=== PATIENT | male | born 1975 | race Caucasian/White ===

== ENCOUNTER 2018-01-02 07:44 | Day surgery (SDC) | payer OTHER, MEDICAID ==
[2018-01-01 08:45] VITALS: BMI 33.6
[~2018-01-02 07:44] MED LIST: LACTATED RINGERS 1,000 ML IV SCH
[2018-01-02 08:03] VITALS: TEMP 97.2
[2018-01-02] MEDS ORDERED: LIDOCAINE 1% 20 ML VIAL (10MG/ML) FOR IV START INTRADERMA ONE (08:06)
[2018-01-02] MEDS ORDERED: LIDOCAINE 1% INJ 10MG/ML (20 ML MDV) ONE (09:34)
[2018-01-02] MEDS ORDERED: PROPOFOL 10 MG/ML 20 ML VIAL IV ONE (09:34)
[2018-01-02 10:24] VITALS: BP 115/70; PULSE 70; RESP 16
--- NOTE | 2018-01-02 13:33 | P.PCN ---
Date of Procedure: 01/02/18 Procedure(s) Performed: Procedure: Colonoscopy and biopsy. Preoperative diagnosis: History of Crohn's disease. Postoperative diagnosis: 1. Ileitis involving the area of anastomosis without any involvement of the large intestine. 2. No strictures. 3. Biopsies obtained in the ileum. Preparation: HalfLytely prep. Sedation: Was provided by anesthesia. Brief clinical history: The patient is a 42-year-old male with history of Crohn' s disease. The patient had two resections in the past and has required immunosuppressive and biologic therapy. He had a flare in 2015 and was on prednisone for 4 months after that. Apparently he stopped all his medications this last August because of some issues with side effects. He did not tolerate and entyvio because it was giving him severe cramps during the infusions. And he was on Imuran and Humira which he stopped in August of this year. The patient has 4-6 soft bowel movements daily. Occasional abdominal pains. No weight loss. His maternal grandfather had colon cancer and his last colonoscopy was in 2013. This evaluation is to assess for activity and complications of his Crohn's to guide therapy and to rule out neoplasia. Procedure: With the patient on his left lateral decubitus position and after informed consent and adequate sedation, the perianal area was inspected and it did not show any fissures or fistulas. There were no masses felt on digital rectal examination. The Olympus CFQ 160L video colonoscope was then inserted in the rectum in the usual fashion and advanced to the right colon. The colon appeared healthy. The area of anastomosis with the small bowel was noted and it appeared inflamed with edema, erythema and ulcerations. There was no strictures or stenosis at the area of the anastomosis and the inflammation just described pertains to findings on the small bowel side of the anastomosis. I could not advance the endoscope into the small bowel, but I was able to obtain a biopsy from the small bowel side of the anastomosis. No other abnormalities were noted in the large intestine then the endoscope was retroflexed in the rectum before it was withdrawn. The patient tolerated the procedure well. Plan: The patient was reassured and I discussed with him and his . He will follow up in the office in few weeks and I anticipate starting him back on a biologic that he can tolerate.
== END 2018-01-02 10:51 | disposition home or self-care (01) ==
LOC: ORWHC2ENDO 07:44
DX: K52.9 Noninfective gastroenteritis and colitis, unspecified (principal); K63.3 Ulcer of intestine; Z80.0 Family history of malignant neoplasm of digestive organs; Z98.0 Intestinal bypass and anastomosis status; Z90.49 Acquired absence of other specified parts of digestive tract
CPT/HCPCS: 88305; 45380; J2001; J2704

== ENCOUNTER → 2018-01-29 | Outpatient (CLI) | payer OTHER, MEDICAID ==
[2018-01-29 14:02] LABS: MCH 30.9 pg (25.0-35.0); Platelet Count 337 k/uL (150-450); RDW 13.4 % (11.5-15.5)
[2018-01-29 14:10] LABS: MCHC 32.7 g/dL (31.0-37.0); MCV 94.5 fL (80.0-100.0); Mean Platelet Volume 6.6; RBC 5.93 m/uL (4.30-5.90); WBC 23.6 k/uL (3.8-10.6)
[2018-01-29 14:14] LABS: HGB 18.3 gm/dL (13.0-17.5)
[2018-01-29 14:17] LABS: ALT 116 U/L (21-72); AST 40 U/L (17-59); Albumin 4.4 g/dL (3.5-5.0); Alkaline Phosphatase 106 U/L (38-126); Anion Gap 13 mmol/L; Blood Urea Nitrogen 23 mg/dL (9-20); C Reactive Protein <5.0 mg/L (<10.0); Calcium 9.8 mg/dL (8.4-10.2); Carbon Dioxide 23 mmol/L (22-30); Chloride 108 mmol/L (98-107); Glucose 130 mg/dL (74-99); Potassium 4.1 mmol/L (3.5-5.1); Sodium 144 mmol/L (137-145); Total Bilirubin 0.5 mg/dL (0.2-1.3); Total Protein 8.1 g/dL (6.3-8.2)
[2018-01-29 15:04] LABS: Erythrocyte Sedimentation Rate 7 mm/hr (0-15)
== END ==
LOC: RADXRMAIN 13:23
DX: K50.80 Crohn's disease of both small and large intestine without complications (principal)
CPT/HCPCS: 80053; 85027; 85652; 86140

== ENCOUNTER → 2018-02-10 | Outpatient (CLI) | payer OTHER, MEDICAID | END | disposition home or self-care (01) | LOC: RADXRWHC 13:52 | DX: K50.80 Crohn's disease of both small and large intestine without complications (principal) | CPT/HCPCS: 36415; 86480 ==

== ENCOUNTER → 2018-07-26 | Outpatient (CLI) | payer OTHER, MEDICAID ==
[2018-07-26 11:35] LABS: HCT 46.3 % (39.0-53.0); HGB 15.3 gm/dL (13.0-17.5); MCH 29.9 pg (25.0-35.0); MCV 90.4 fL (80.0-100.0); Mean Platelet Volume 6.5; Platelet Count 338 k/uL (150-450); RBC 5.12 m/uL (4.30-5.90); RDW 13.8 % (11.5-15.5); WBC 10.9 k/uL (3.8-10.6)
[2018-07-26 13:29] LABS: Erythrocyte Sedimentation Rate 26 mm/hr (0-15)
[2018-07-26 16:30] LABS: Albumin 4.3 g/dL (3.80-4.90); Albumin/Globulin Ratio 1.26 (1.60-3.17); Anion Gap 7.7 mmol/L (4.00-12.00); C Reactive Protein 1.3 mg/dL (0.0-0.8); Calcium 9.2 mg/dL (8.7-10.3); Carbon Dioxide 29.3 mmol/L (21.6-31.8); Globulin 3.4 g/dL (1.6-3.3); Potassium 4.4 mmol/L (3.5-5.5); Total Bilirubin 0.5 mg/dL (0.3-1.2); Total Protein 7.7 g/dL (6.2-8.2)
== END ==
LOC: LABWHC1 09:50
DX: K50.80 Crohn's disease of both small and large intestine without complications (principal)
CPT/HCPCS: 80053; 85027; 85652; 86140

== ENCOUNTER → 2018-08-01 | Outpatient (CLI) | payer OTHER, MEDICAID | LOC: LABWHC1 15:11 | DX: K50.80 Crohn's disease of both small and large intestine without complications (principal) | CPT/HCPCS: 36415; 82397 ==

== ENCOUNTER 2018-09-22 18:28 | Emergency (ER) | payer OTHER, MEDICAID ==
[2018-09-22] MEDS ORDERED: guaiFENesin-DM 600/30MG 1 EACH TAB.ER.12H PO STA (19:01)
[2018-09-22] MEDS ORDERED: predniSONE 50 MG TAB PO STA (19:01)
[2018-09-22] MEDS ORDERED: IPRATROPIUM-ALBUTEROL 3 ML NEB INHALATION STA (19:01)
--- NOTE | 2018-09-22 19:12 | ED ---
URI HPI - General Chief Complaint: Upper Respiratory Infection Stated Complaint: pain in chest when coughing Time Seen by Provider: 09/22/18 18:43 Source: patient Mode of arrival: ambulatory Limitations: no limitations - History of Present Illness Initial Comments: 43-year-old male patient presents to the emergency department today for evaluation of cough. Patient states he has had a cough intermittently over the last couple of weeks after he cut open a fibrous mattress and old camper. Patient states that last night the coughing seemed to worsen. States he is not having burning chest pain with coughing. Denies radiation of the pain through to his back. Denies any pain with deep breathing. Patient states he is coughing up small amount of clear sputum. Denies any hemoptysis. States he does have a mild sore throat but denies any nasal congestion or drainage. Denies any fever or chills with this. Patient denies any history of lung condi tions or history of smoking. Denies taking medication for his symptoms. Patient denies any recent rash, abdominal pain, nausea, vomiting, diarrhea, constipation, back pain, numbness, tingling, dizziness, weakness, hematuria, dysuria, urinary urgency, urinary frequency, headache, visual changes, or any other complaints. - Related Data Home Medications Medication Instructions Recorded Confirmed Adalimumab [Humira(Cf) Pen] 40 mg SQ [id number] 09/22/18 09/22/18 Previous Rx's Medication Instructions Recorded Albuterol Sulfate [Proair Hfa] 1 - 2 puff INHALATION Q6HR PRN #1 09/22/18 inhaler guaiFENesin-DM 600/30MG [Mucinex 1 each PO Q12HR #10 tab.er.12h 09/22/18 Dm] predniSONE 50 mg PO DAILY #5 tablet 09/22/18 Allergies Allergy/AdvReac Type Severity Reaction Status Date / Time No Known Allergies Allergy Verified 09/22/18 19:27 Review of Systems ROS Statement: Those systems with pertinent positive or pertinent negative responses have been documented in the HPI. ROS Other: All systems not noted in ROS Statement are negative. Past Medical History Additional Past Medical History / Comment(s): Crohn's disease, past bronchitis, "occ leg swelling" History of Any Multi-Drug Resistant Organisms: None Reported Past Surgical History: Bowel Resection, Orthopedic Surgery Additional Past Surgical History / Comment(s): Colonoscopy, rt Ankle tendon/ligament repair and lt Index finger surgery d/t crushing injury from hydrolic press Past Anesthesia/Blood Transfusion Reactions: No Reported Reaction Past Psychological History: No Psychological Hx Reported Smoking Status: Former smoker Past Alcohol Use History: None Reported Past Drug Use History: None Reported - Past Family History Mother Family Medical History: Cancer Additional Family Medical History / Comment(s): Lung CA Father Family Medical History: Chest Pain / Angina, Deep Vein Thrombosis (DVT) Additional Family Medical History / Comment(s): heart disease,poor circulation General Exam Limitations: no limitations General appearance: alert, in no apparent distress, other (Physical well- developed, well-nourished adult male patient in no acute distress. Vital signs upon presentation are temperature 98.6F, pulse 96, respirations 18, blood pressure 142/93, pulse ox 97% on room air.) Eye exam: Present: normal appearance, PERRL, EOMI. Absent: scleral icterus, conjunctival injection, periorbital swelling ENT exam: Present: normal exam, normal oropharynx, mucous membranes moist Neck exam: Present: normal inspection. Absent: tenderness, meningismus, lymphadenopathy Respiratory exam: Present: normal lung sounds bilaterally. Absent: respiratory distress, wheezes, rales, rhonchi, stridor Cardiovascular Exam: Present: regular rate, normal rhythm, normal heart sounds. Absent: systolic murmur, diastolic murmur, rubs, gallop, clicks GI/Abdominal exam: Present: soft, normal bowel sounds. Absent: distended, tenderness, guarding, rebound, rigid Neurological exam: Present: alert, oriented X3, CN II-XII intact Psychiatric exam: Present: normal affect, normal mood Skin exam: Present: warm, dry, intact, normal color. Absent: rash Course Vital Signs 09/22/18 09/22/18 09/22/18 18:33 19:44 19:50 Temperature 98.6 F Pulse Rate 96 95 95 Respiratory 18 Rate Blood Pressure 142/93 O2 Sat by Pulse 97 Oximetry 09/22/18 20:15 Temperature 98.2 F Pulse Rate 103 H Respiratory 22 Rate Blood Pressure 151/97 O2 Sat by Pulse 97 Oximetry Medical Decision Making - Medical Decision Making 43-year-old male patient presented to the emergency department today for evaluation of cough and chest discomfort. Physical examination reveals clear equal lung sounds. Chest x-ray showed no acute cardio pulmonary process. Patient is afebrile, vital signs stable. EKG showed normal sinus rhythm. Patient denies any chest pain at rest. Patient symptoms are consistent with acute bronchitis. We'll treat with steroids, Mucinex, and Pro Air inhaler. He is instructed to follow-up with his primary care physician for recheck in 1-2 days. Return parameters were discussed in detail. He verbalizes understanding and agrees this plan. - EKG Data -: EKG Interpreted by Me EKG Comments: EKG obtained in 1922 shows normal sinus rhythm with a ventricular rate of 90, DC interval 152, QRS duration 86, QT 350, QTC 428. No evidence of ST elevation or depression. - Radiology Data Radiology results: report reviewed, image reviewed Two-view x-ray of the chest is obtained. Report was reviewed in its entirety. Impression by Dr. Nicholson shows normal chest. Disposition Clinical Impression: Acute bronchitis Disposition: HOME SELF-CARE Condition: Good Instructions (If sedation given, give patient instructions): Acute Bronchitis (ED) Additional Instructions: Complete medications as directed. Follow-up through primary care physician for recheck in 1-2 days. Return to the emergency department immediately for any new, worsening, or concerning symptoms. Prescriptions: guaiFENesin-DM 600/30MG [Mucinex Dm] 1 each PO Q12HR #10 tab.er.12h predniSONE 50 mg PO DAILY #5 tablet Albuterol Sulfate [Proair Hfa] 1 - 2 puff INHALATION Q6HR PRN #1 inhaler PRN Reason: Shortness Of Breath Is patient prescribed a controlled substance at d/c from ED?: No Referrals: None,Stated [Primary Care Provider] - 1-2 days Time of Disposition: 20:02
--- NOTE | 2018-09-22 19:23 | XR ---
EXAMINATION TYPE: XR chest 2V DATE OF EXAM: 09/22/2018 COMPARISON: NONE HISTORY: Cough TECHNIQUE: Frontal and lateral views of the chest are obtained. FINDINGS: Heart and mediastinum are normal. Lungs are clear. Diaphragm is normal. Bony thorax appear s normal. IMPRESSION: Normal chest
[2018-09-22 20:28] VITALS: BP 151/97; PULSE 103; RESP 22; TEMP 98.2
== END 2018-09-22 20:15 | disposition home or self-care (01) ==
LOC: EC 18:28
DX: J20.9 Acute bronchitis, unspecified (principal); Z87.891 Personal history of nicotine dependence; Z79.899 Other long term (current) drug therapy
CPT/HCPCS: 94640; 93005; 71046; 99283; J7512

== ENCOUNTER → 2019-05-05 | Outpatient (CLI) | payer OTHER ==
[2019-05-05 10:17] LABS: Basophils # (A) 0.1 k/uL (0-0.2); Basophils % (A) 0 %; Eosinophils % (A) 0 %; HCT 45.5 % (39.0-53.0); HGB 14.5 gm/dL (13.0-17.5); Lymphocytes # (A) 2.1 k/uL (1.0-4.8); Lymphocytes % (A) 10 %; MCH 28.4 pg (25.0-35.0); MCHC 31.8 g/dL (31.0-37.0); MCV 89.5 fL (80.0-100.0); Mean Platelet Volume 7.1; Monocytes # (A) 1.4 k/uL (0-1.0); Monocytes % (A) 6 %; Neutrophils # (A) 17.9 k/uL (1.3-7.7); Neutrophils % (A) 83 %; Platelet Count 314 k/uL (150-450); RBC 5.09 m/uL (4.30-5.90); RDW 14.3 % (11.5-15.5); WBC 21.8 k/uL (3.8-10.6)
[2019-05-05 11:43] LABS: Erythrocyte Sedimentation Rate 14 mm/hr (0-15)
[2019-05-05 17:09] LABS: African American GFR (CKD) 60.7 (60.0-200.0); Albumin 4.1 g/dL (3.80-4.90); Albumin/Globulin Ratio 1.64 (1.60-3.17); C Reactive Protein 0.5 mg/dL (0.0-0.8); Calcium 9.3 mg/dL (8.7-10.3); Globulin 2.5 g/dL (1.6-3.3); Non-African American GFR(CKD) 52.4 (60.0-200.0); Potassium 3.8 mmol/L (3.5-5.5); Total Bilirubin 0.3 mg/dL (0.3-1.2); Total Protein 6.6 g/dL (6.2-8.2)
== END ==
LOC: LABWHC1 09:35
PROVIDERS: ATTEND Internal Medicine
DX: K50.90 Crohn's disease, unspecified, without complications (principal)
CPT/HCPCS: 36415; 80053; 85025; 85652; 86140

== ENCOUNTER → 2019-06-17 | Outpatient (CLI) | payer OTHER | LOC: LABWHC1 06:57 | PROVIDERS: ATTEND Internal Medicine | DX: K50.813 Crohn's disease of both small and large intestine with fistula (principal) | CPT/HCPCS: 36415; 80299; 83520 ==

== ENCOUNTER 2019-08-04 16:22 | Inpatient (IN) | payer OTHER ==
[2019-08-04] MEDS ORDERED: SODIUM CHLORIDE 0.9% 1,000 ML IV STA (16:42)
[2019-08-04] MEDS ORDERED: ONDANSETRON 4 MG/2 ML VIAL IVP STA (16:42)
[2019-08-04] MEDS ORDERED: MORPHINE SULFATE 4 MG/ML SYRINGE IV STA (16:42)
[2019-08-04] MEDS ORDERED: methylPREDNISolone SOD SUCCI 125 MG/2 ML VIAL IV STA (16:44)
[2019-08-04 17:12] LABS: Basophils # (A) 0.1 k/uL (0-0.2); Basophils % (A) 1 %; Eosinophils # (A) 0.2 k/uL (0-0.7); Eosinophils % (A) 1 %; HCT 49.2 % (39.0-53.0); HGB 16.2 gm/dL (13.0-17.5); Lymphocytes # (A) 2.4 k/uL (1.0-4.8); Lymphocytes % (A) 15 %; MCHC 32.9 g/dL (31.0-37.0); MCV 88.1 fL (80.0-100.0); Mean Platelet Volume 6.6; Monocytes % (A) 7 %; Neutrophils # (A) 11.8 k/uL (1.3-7.7); Neutrophils % (A) 74 %; Platelet Count 371 k/uL (150-450); RBC 5.58 m/uL (4.30-5.90); RDW 13.9 % (11.5-15.5); WBC 15.9 k/uL (3.8-10.6)
[2019-08-04 17:13] LABS: Appearance,Urine Clear (Clear); Bilirubin,Urine Negative (Negative); Blood,Urine Negative (Negative); Color,Urine Yellow; Glucose,Urine (UA) Negative (Negative); Ketones,Urine Negative (Negative); Leukocyte Esterase,Urine Negative (Negative); Nitrite,Urine Negative (Negative); PH, Urine 5.5 (5.0-8.0); Protein,Urine Negative (Negative); Specific Gravity,Urine 1.018 (1.001-1.035); Urobilinogen,Urine <2.0 mg/dL (<2.0)
--- NOTE | 2019-08-04 17:20 | ED ---
Abdominal Pain HPI - General Chief Complaint: Abdominal Pain Stated Complaint: Crohn's flare up Time Seen by Provider: 08/04/19 16:27 Source: patient Mode of arrival: ambulatory Limitations: no limitations - History of Present Illness Initial Comments: Patient is a 44-year-old male, with history of Crohn's disease, presenting to the emergency department complaints of right lower quadrant pain 3 days. He feels like this is a Crohn's flareup. Patient admits to intermittent fevers, chills, diarrhea as well as the belly pain. He states he had a colonoscopy performed 2-3 weeks ago which showed increased in strictures. He states the pain is suprapubic as well as right lower quadrant. He states he does have mild pain in the left side. He denies vomiting. Does admit to mild nausea. Denies melana, hematochezia, or hematemesis. Patient gets an 8 week injection of immunomodulator. He states his next treatment is in one to 2 weeks. At that p oint they are going to switch him to every 4 weeks[address] He follows with Dr. Caro. He denies shortness of breath, chest pain, cough. He has no other complaints at this time. Upon arrival to the ER, his vital signs are stable. - Related Data Previous Rx's Medication Instructions Recorded Bisacodyl [Dulcolax] 10 mg PO DAILY PRN #10 tablet. 06/04/19 predniSONE 10 mg PO DIRECTED #50 tab 06/04/19 Allergies Allergy/AdvReac Type Severity Reaction Status Date / Time No Known Allergies Allergy Verified 08/04/19 16:25 Review of Systems ROS Statement: Those systems with pertinent positive or pertinent negative responses have been documented in the HPI. ROS Other: All systems not noted in ROS Statement are negative. Past Medical History Additional Past Medical History / Comment(s): Crohn's disease with injections every 8 weeks, past bronchitis, "occ leg swelling" History of Any Multi-Drug Resistant Organisms: None Reported Past Surgical History: Appendectomy, Bowel Resection, Orthopedic Surgery Additional Past Surgical History / Comment(s): Colonoscopy, bowel resection x 2, rt ankle tendon/ligament repair and lt index finger surgery d/t crushing injury from hydrolic press Past Anesthesia/Blood Transfusion Reactions: No Reported Reaction Past Psychological History: No Psychological Hx Reported Smoking Status: Former smoker Past Alcohol Use History: None Reported Past Drug Use History: None Reported - Past Family History Mother Family Medical History: Cancer Additional Family Medical History / Comment(s): Lung CA Father Family Medical History: Chest Pain / Angina, Deep Vein Thrombosis (DVT) Additional Family Medical History / Comment(s): heart disease,poor circulation General Exam - General Exam Comments Initial Comments: GENERAL: Well-appearing, well-nourished and in no acute distress. HEAD: Atraumatic, normocephalic. EYES: Pupils equal round and reactive to light, extraocular movements intact, sclera anicteric, conjunctiva are normal. ENT: TMs normal, nares patent, oropharynx clear without exudates. Moist mucous membranes. NECK: Normal range of motion, supple without lymphadenopathy or JVD. LUNGS: Breath sounds clear to auscultation bilaterally and equal. No wheezes rales or rhonchi. HEART: Regular rate and rhythm without murmurs, rubs or gallops. ABDOMEN: Very tender to palpation of the right lower quadrant, suprapubic area. Mild tenderness in the left lower quadrant. Hyperactive bowel sounds. Positive gu arding. Soft. No masses appreciated. : Deferred EXTREMITIES: Normal range of motion, no pitting or edema. No clubbing or cyanosis. NEUROLOGICAL: Normal speech, normal gait. PSYCH: Normal mood, normal affect. SKIN: Warm, Dry, normal turgor, no rashes or lesions noted. Limitations: no limitations Course Vital Signs 08/04/19 08/04/19 16:23 17:01 Temperature 99.0 F Pulse Rate 108 H 100 Respiratory 18 18 Rate Blood Pressure 128/88 134/87 O2 Sat by Pulse 99 99 Oximetry Medical Decision Making - Medical Decision Making Patient is a 44-year-old male with history of Crohn's presenting with a possible Crohn's flareup for 3 days. Intermittent fevers, right lower quadrant abdominal pain, diarrhea, nausea. No vomiting. Vitals are stable upon arrival. On exam, patient is really tender in right lower quadrant. Patient's lab reveal looks cytosis 15.9, creatinine was little elevated at 1.65. No other acute abnormalities. CT the abdomen shows a partial mechanical obstruction as well as fat stranding edema along the distal loop of ileum. Patient was given steroids, nausea and pain meds. Patient reports mild improvement of symptoms. Patient will be admitted and Dr. Caro be consulted. Patient will be continu ed on pain control as well as steroids. He is in agreement with this plan of care. Case discussed with Dr. Beach. - Lab Data Result diagrams: 08/04/19 16:50 08/04/19 16:50 Lab Results 08/04/19 08/04/19 08/04/19 Range/Units 16:00 16:50 16:50 WBC 15.9 H (3.8-10.6) k/uL RBC 5.58 (4.30-5.90) m/uL Hgb 16.2 (13.0-17.5) gm/dL Hct 49.2 (39.0-53.0) % MCV 88.1 (80.0-100.0) fL MCH 29.0 (25.0-35.0) pg MCHC 32.9 (31.0-37.0) g/dL RDW 13.9 (11.5-15.5) % Plt Count 371 (150-450) k/uL Neutrophils % 74 % Lymphocytes % 15 % Monocytes % 7 % Eosinophils % 1 % Basophils % 1 % Neutrophils # 11.8 H (1.3-7.7) k/uL Lymphocytes # 2.4 (1.0-4.8) k/uL Monocytes # 1.0 (0-1.0) k/uL Eosinophils # 0.2 (0-0.7) k/uL Basophils # 0.1 (0-0.2) k/uL PT (9.0-12.0) sec INR (<1.2) APTT (22.0-30.0) sec Sodium 138 (137-145) mmol/L Potassium 3.9 (3.5-5.1) mmol/L Chloride 103 (98-107) mmol/L Carbon Dioxide 25 (22-30) mmol/L Anion Gap 10 mmol/L BUN 15 (9-20) mg/dL Creatinine 1.65 H (0.66-1.25) mg/dL Est GFR (CKD-EPI)AfAm 58 (>60 ml/min/1.73 sqM) Est GFR (CKD-EPI)NonAf 51 (>60 ml/min/1.73 sqM) Glucose 82 (74-99) mg/dL Plasma Lactic Acid Narinder (0.7-2.0) mmol/L Calcium 9.4 (8.4-10.2) mg/dL Total Bilirubin 1.1 (0.2-1.3) mg/dL AST 29 (17-59) U/L ALT 26 (4-49) U/L Alkaline Phosphatase 127 H (38-126) U/L Total Protein 8.1 (6.3-8.2) g/dL Albumin 4.7 (3.5-5.0) g/dL Amylase 65 (30-110) U/L Lipase 118 (23-300) U/L Urine Color Yellow Urine Appearance Clear (Clear) Urine pH 5.5 (5.0-8.0) Ur Specific [place] 1.018 (1.001-1.035) Urine Protein Negative (Negative) Urine Glucose (UA) Negative (Negative) Urine Ketones Negative (Negative) Urine Blood Negative (Negative) Urine Nitrite Negative (Negative) Urine Bilirubin Negative (Negative) Urine Urobilinogen <2.0 (<2.0) mg/dL Ur Leukocyte Esterase Negative (Negative) 08/04/19 08/04/19 Range/Units 16:50 16:50 WBC (3.8-10.6) k/uL RBC (4.30-5.90) m/uL Hgb (13.0-17.5) gm/dL Hct (39.0-53.0) % MCV (80.0-100.0) fL MCH (25.0-35.0) pg MCHC (31.0-37.0) g/dL RDW (11.5-15.5) % Plt Count (150-450) k/uL Neutrophils % % Lymphocytes % % Monocytes % % Eosinophils % % Basophils % % Neutrophils # (1.3-7.7) k/uL Lymphocytes # (1.0-4.8) k/uL Monocytes # (0-1.0) k/uL Eosinophils # (0-0.7) k/uL Basophils # (0-0.2) k/uL PT 10.0 (9.0-12.0) sec INR 1.0 (<1.2) APTT 23.0 (22.0-30.0) sec Sodium (137-145) mmol/L Potassium (3.5-5.1) mmol/L Chloride (98-107) mmol/L Carbon Dioxide (22-30) mmol/L Anion Gap mmol/L BUN (9-20) mg/dL Creatinine (0.66-1.25) mg/dL Est GFR (CKD-EPI)AfAm (>60 ml/min/1.73 sqM) Est GFR (CKD-EPI)NonAf (>60 ml/min/1.73 sqM) Glucose (74-99) mg/dL Plasma Lactic Acid Narinder 1.7 (0.7-2.0) mmol/L Calcium (8.4-10.2) mg/dL Total Bilirubin (0.2-1.3) mg/dL AST (17-59) U/L ALT (4-49) U/L Alkaline Phosphatase (38-126) U/L Total Protein (6.3-8.2) g/dL Albumin (3.5-5.0) g/dL Amylase (30-110) U/L Lipase (23-300) U/L Urine Color Urine Appearance (Clear) Urine pH (5.0-8.0) Ur Specific [place] (1.001-1.035) Urine Protein (Negative) Urine Glucose (UA) (Negative) Urine Ketones (Negative) Urine Blood (Negative) Urine Nitrite (Negative) Urine Bilirubin (Negative) Urine Urobilinogen (<2.0) mg/dL Ur Leukocyte Esterase (Negative) Disposition Clinical Impression: Crohn's ileitis, Leukocytosis, Intractable abdominal pain, Mechanical obstruction of the intestine Disposition: [facility] Condition: Stable Is patient prescribed a controlled substance at d/c from ED?: No Referrals: None,Stated [Primary Care Provider] - 1-2 days Decision Date: 08/04/19 Decision Time: 18:13
[2019-08-04 17:25] LABS: Albumin 4.7 g/dL (3.5-5.0); Calcium 9.4 mg/dL (8.4-10.2); Potassium 3.9 mmol/L (3.5-5.1); Total Bilirubin 1.1 mg/dL (0.2-1.3); Total Protein 8.1 g/dL (6.3-8.2)
[2019-08-04] MEDS ORDERED: MORPHINE SULFATE 4 MG/ML SYRINGE IVP STA (17:44)
--- NOTE | 2019-08-04 17:56 | CT ---
EXAMINATION TYPE: CT abdomen pelvis w con DATE OF EXAM: 08/04/2019 COMPARISON: 06/02/2019 HISTORY: Abdominal pain and diarrhea, hx of crohns CT DLP: 1079.1 mGycm Automated exposure control for dose reduction was used. CONTRAST: Performed with IV Contrast, patient injected with 100 mL of Isovue 300. Lung bases are clear. There is no pleural effusion. Heart size is normal. There is no pericardial eff usion. Liver spleen pancreas stomach gallbladder appear normal. Bile ducts are not dilated. Gallbladder gutierrez ures 4.2 cm in maximum diameter. There is no adrenal mass. Kidneys show satisfactory contrast opacification. There is no hydronephrosi s. There are multiple surgical clips anterior to the right kidney. Ureters are not dilated. Bladder d istends smoothly. There is no inguinal hernia. There is no free fluid in the pelvis. There is a loop of distal ileum with significant wall thickening and surrounding fat stranding and edema. There is pr evious surgery on the distal small bowel. Ileum is dilated up to 4.3 cm. There is wall thickening and luminal narrowing apparently involving the terminal ileum near the ileocolic anastomosis. The ileum is dilated proximally. There is no free air. There is no ascites. There is mild wall thickening of the more proximal distal ileum. Lumbar vertebra have normal spacing and alignment. Posterior elements are intact. Bony pelvis is inta ct. IMPRESSION: Inflammatory changes and wall thickening of the distal ileum with localized dilated loop of ileum pro ximal to the narrowing. There is probably a partial mechanical obstruction. There is fat stranding an d edema around the area of involvement that is increased compared to old exam. Distal small bowel ove rall is less distended than last exam.
[2019-08-04] MEDS ORDERED: NALOXONE 0.4 MG/ML 1 ML VIAL IV PRN (18:07)
[2019-08-04] MEDS ORDERED: ONDANSETRON 4 MG/2 ML VIAL IVP PRN (18:07)
[2019-08-04] MEDS: SODIUM CHLORIDE 0.9% 1,000 ML IV SCH (19:22)
[2019-08-04] MEDS: MORPHINE SULFATE 4 MG/ML SYRINGE IV PRN ×2 (19:22→22:39)
[2019-08-04] MEDS: KETOROLAC 30 MG/ML 1 ML VIAL IVP PRN (20:53)
--- NOTE | 2019-08-04 22:00 | P.HPIM ---
History of Present Illness H&P Date: 08/04/19 The patient is a 44 yo M with a PMH of crohn's disease (diagnosed 2003), s/p bowel resection, complicated by perianal fistulas and multiple relapses, currently on biologic medications presented to the ED with complaints of gradually worsening abdominal pain, with diarrhea and nausea. The patient notes that his symptoms started 3-4 days ago when he developed a mild right lower quadrant abdominal pain. He notes that the pain gradually worsened, and he then developed watery diarrhea along with subjective fevers and nausea. He denied vomiting. He also denied recent travel, sick contacts, cough, chest pain, shortness of breath, or dizziness. He reports that this is similar to his previous episodes of Crohn's flare-ups. The patient underwent an extensive evaluation in the emergency room with an abdomen/pelvis computed tomography scan with contrast revealing distal ileum inflammatory changes with wall thickening and some dilated loops proximal to the narrowing and possible partial mechanical obstruction. Laboratory evaluation revealed a WBC count of 15.9, hemoglobin 16.2, alkaline phosphatase 127, sodium 138, potassium 3.9, BUN 15, creatinine 1.65. The patient was given IV Solu-Medrol along with pain medications and IV fluids and is being admitted to the medicine service for further management of Crohn's flareup with GI on consult. Review of Systems Pertinent positives and negatives as discussed in HPI, a complete review of systems was performed and all other systems are negative. Past Medical History Additional Past Medical History / Comment(s): Crohn's disease with injections every 8 weeks, past bronchitis, "occ leg swelling" History of Any Multi-Drug Resistant Organisms: None Reported Past Surgical History: Appendectomy, Bowel Resection, Orthopedic Surgery Additional Past Surgical History / Comment(s): Colonoscopy, bowel resection x 2, rt ankle tendon/ligament repair and lt index finger surgery d/t crushing injury from hydrolic press Past Anesthesia/Blood Transfusion Reactions: No Reported Reaction Past Psychological History: No Psychological Hx Reported Additional Psychological History / Comment(s): Pt resides with his spouse and 3 children. He has another rebecca that lives with his exspouse. He is independent. Smoking Status: Former smoker Past Alcohol Use History: None Reported Additional Past Alcohol Use History / Comment(s): started smoking age 18 smoked 1/2-1 and quit 2011 Past Drug Use History: None Reported - Past Family History Mother Family Medical History: Cancer Additional Family Medical History / Comment(s): Lung CA Father Family Medical History: Chest Pain / Angina, Deep Vein Thrombosis (DVT) Additional Family Medical History / Comment(s): heart disease,poor circulation Medications and Allergies Home Medications Medication Instructions Recorded Confirmed Type Ciprofloxacin HCl [Cipro] 500 mg PO Q12H 08/04/19 08/04/19 History Flaxseed Oil 1,000 mg PO BID 08/04/19 08/04/19 History [place]-3 Fatty Acids/Fish Oil [Fish 1 cap PO DAILY 08/04/19 08/04/19 History Oil 1,000 mg Softgel] Ustekinumab [Stelara] See Taper SQ DIRECTED 08/04/19 08/04/19 History Allergies Allergy/AdvReac Type Severity Reaction Status Date / Time No Known Allergies Allergy Verified 08/04/19 18:50 Physical Exam Vitals: Vital Signs Temp Pulse Pulse Resp BP BP Pulse Ox 08/04/19 20:38 98.6 F 74 14 145/74 94 L 08/04/19 20:00 76 20 125/76 98 08/04/19 19:00 74 20 122/73 98 08/04/19 17:01 100 18 134/87 99 08/04/19 16:23 99.0 F 108 H 18 128/88 99 Intake and Output 08/04/19 08/04/19 08/04/19 06:59 14:59 22:59 Other: Weight 97.522 kg General: non toxic, no distress, appears at stated age, overweight Derm: no unusual rashes/lesions no unusual ecchymoses, warm, dry Head: atraumatic, normocephalic, symmetric Eyes: EOMI, no lid lag, anicteric sclera, pupils equal round reactive to light ENT: Nose and ears atraumatic, no thrush, no pharyngeal erythema Neck: No thyromegaly, no cervical lymphadenopathy, trachea midline, supple Mouth: no lip lesion, mucus membranes moist Cardiovascular: S1S2 reg, no murmur, positive posterior tibial pulse bilateral, no edema, capillary refill less than 2 seconds Lungs: CTA bilateral, no rhonchi, no rales , no accessory muscle use Abdominal: soft, right lower quadrant tenderness to palpation, minimal guarding, no appreciable organomegaly, normal bowel sounds Ext: no gross muscle atrophy, muscle strength 5 out of 5 in all 4 extremities grossly, no contractures, Neuro: CN II-XI grossly intact, light touch intact all 4 extremities, finger to nose within normal limits, Psych: Alert, oriented, appropriate affect Results CBC & Chem 7: 08/04/19 16:50 08/04/19 16:50 Labs: Abnormal Lab Results - Last 24 Hours (Table) 08/04/19 08/04/19 Range/Units 16:50 16:50 WBC 15.9 H (3.8-10.6) k/uL Neutrophils # 11.8 H (1.3-7.7) k/uL Creatinine 1.65 H (0.66-1.25) mg/dL Alkaline Phosphatase 127 H (38-126) U/L Thrombosis Risk Factor Assmnt - Choose All That Apply Any of the Below Risk Factors Present?: Yes Each Factor Represents 1 point: Age 41-60 years, Obesity (BMI >25) Each Risk Factor Represents 3 Points: Family history of DVT/PE Thrombosis Risk Factor Assessment Total Risk Factor Score: 5 Thrombosis Risk Factor Assessment Level: High Risk Assessment and Plan Plan: Crohn's flare -Start patient on prednisone 40 mg daily -GI consulted -Clear liquid diet for now RAND -C/w IVFs -Monitor BMP Leukocytosis -Likely due to acute flare -Monitor for now DVT prophylaxis -Heparin subq The patient is admitted with an anticipated less than 2 midnight stay for evaluation of crohn's flare CODE STATUS: Full Code Discussed with: Patient Anticipated discharge date: 1-[address]: Home A total of 35 minutes was spent on the care of this complex patient more than 50% of the time was spent in counseling and care coordination.
[2019-08-04] MEDS: HEPARIN SODIUM,PORCINE 5,000 UNIT/ML 1 ML VIAL SQ SCH (22:39)
[2019-08-05] MEDS: MORPHINE SULFATE 4 MG/ML SYRINGE IV PRN ×5 (01:31→15:41)
[2019-08-05] MEDS: KETOROLAC 30 MG/ML 1 ML VIAL IVP PRN ×2 (01:31→23:30)
[2019-08-05 07:28] LABS: HCT 44.9 % (39.0-53.0); HGB 14.2 gm/dL (13.0-17.5); MCH 28.3 pg (25.0-35.0); MCHC 31.6 g/dL (31.0-37.0); MCV 89.7 fL (80.0-100.0); Mean Platelet Volume 6.9; Platelet Count 360 k/uL (150-450); RBC 5.01 m/uL (4.30-5.90); RDW 13.7 % (11.5-15.5); WBC 15.9 k/uL (3.8-10.6)
[2019-08-05 07:40] LABS: Albumin 3.9 g/dL (3.5-5.0); Calcium 9.4 mg/dL (8.4-10.2); Potassium 5.2 mmol/L (3.5-5.1); Total Bilirubin 0.8 mg/dL (0.2-1.3); Total Protein 7.1 g/dL (6.3-8.2)
[2019-08-05] MEDS: HEPARIN SODIUM,PORCINE 5,000 UNIT/ML 1 ML VIAL SQ SCH ×3 (08:10→23:31)
[2019-08-05] MEDS ORDERED: predniSONE 20 MG TAB PO SCH (09:00)
[2019-08-05] MEDS: SODIUM CHLORIDE 0.9% 1,000 ML IV SCH ×2 (11:30→21:28)
--- NOTE | 2019-08-05 13:26 | CONS ---
CONSULTATION DATE OF DICTATION: 08/05/2019 REASON FOR CONSULTATION: Exacerbation of Crohn disease/bowel obstruction. HISTORY OF PRESENT ILLNESS: The patient is a 44-year-old pleasant white male who was diagnosed with Crohn disease in 2003, status post bowel resection x2, the last one in 2011 who is presently maintained on biologics with Stelara, that was started in October of [address] Kim at [facility]. The patient prior to that was treated with Entyvio for a few months, which he did not tolerate. After that, he was on Humira for 2 years until recently when he started on Stelara. The patient has frequent exacerbations of Crohn disease requiring steroid therapy. In fact, he had a colonoscopy by Dr. Kim at [facility] 4 or 5 weeks ago and was told that he has a narrowing at the anastomosis. He was treated with steroids for 4 weeks, which he just went off about a few days ago. He presented to the hospital with lower abdominal pain associated with some nausea but no emesis and did not have any bowel movement history. The pain continued to progressively get worse came into the emergency room. He had a CT of the abdomen and pelvis done that showed the thickening of the distal ileum with dilated loops of proximal small bowel consistent with partial mechanical obstruction. He is presently on IV steroids with Solu-Medrol 20 mg q.8 hours. This morning, he still continues to feel the same. No further episodes of nausea, vomiting. Abdominal pain has somewhat improved. PAST MEDICAL HISTORY: Significant for Crohn's diagnosed in 2003. PAST SURGICAL HISTORY: Appendectomy, small bowel resection x2, last one in 2011, history of disease, right ankle tendon repair. MEDICATIONS: Medications at home include Cipro, fish oil, Stelara. ALLERGIES: None. SOCIAL HISTORY: No smoking. No alcohol use. FAMILY HISTORY: Mother had lung cancer. Father had DVT. REVIEW OF SYSTEMS: CARDIOPULMONARY: No chest pain, shortness of breath. GENITOURINARY: No dysuria or hematuria. MUSCULOSKELETAL: Unremarkable. SKIN: Unremarkable. ENDOCRINE: Unremarkable. PSYCHIATRIC: Unremarkable. NEUROLOGY: Unremarkable. ENT/VISION: Unremarkable. CONSTITUTIONAL: No recent weight loss. No fever, chills, night sweats. PHYSICAL EXAMINATION: On physical examination, blood pressure 135/63, pulse rate 67, temperature 97.8. HEENT: Examination unremarkable. Conjunctivae pink. Sclerae anicteric. Oral cavity, no lesions. NECK: No JVD or lymph node enlargement. CHEST: Clear to auscultation. HEART: Regular rate and rhythm. ABDOMEN: Soft. There was mild tenderness in the right lower quadrant in the periumbilical area. There was no rebound or rigidity. EXTREMITIES: No pedal edema. SKIN: No rashes. NEUROLOGIC: Alert and oriented x3. No focal deficits. LABS: WBC 15.9, hemoglobin 16.2, platelets normal. Basic metabolic panel is within normal limits. Sedimentation rate is 29. CRP is 39. IMPRESSION: 1. The patient with longstanding history of Crohn's ileitis, status post 2 bowel resections in the past, last one in 2011, presently maintained on Stelara since October of 2018, followed by Dr. Kim at [facility] presents to the hospital with lower abdominal pain and CT scan showing thickening of the distal ileum and changes consistent with partial small bowel obstruction. He is on IV steroids with Solu-Medrol 20 mg q.8 hours and feeling a little bit better today. 2. Active perianal Crohn disease. 3. Mild leukocytosis. RECOMMENDATIONS: 1. Continue with Solu-Medrol 20 mg q.8 hours. 2. Continue clear liquid diet. 3. Repeat labs in the morning. 4. We will follow with you closely. Thank you for this consultation. MMODL / IJN: [id number] /
[2019-08-05] MEDS: CIPROFLOXACIN HCL 500 MG TAB PO SCH ×2 (14:18→21:29)
[2019-08-05] MEDS: methylPREDNISolone SOD SUCCI 40 MG/ML 1 ML VIAL IV SCH ×2 (15:41→23:30)
--- NOTE | 2019-08-05 16:27 | P.PN ---
Subjective Progress Note Date: 08/05/19 Principal diagnosis: Partial bowel obstruction, Crohn's flare Patient was seen and examined. No acute events overnight. Patient reports continued right lower quadrant abdominal pain. Patient reports having a bowel movement today. Passing plenty of gas. No nausea or vomiting. No fever or chills. Requesting better pain management. He denies any chest pain, shortness breath or palpitations. Objective - Vital Signs Vital signs: Vital Signs Temp 98.2 F 08/05/19 14:36 Pulse 71 08/05/19 14:36 Resp 16 08/05/19 14:36 BP 103/63 08/05/19 14:36 Pulse Ox 97 08/05/19 14:36 Intake & Output 08/04/19 08/05/19 08/05/19 18:59 06:59 18:59 Intake Total 675 Balance 675 Weight 97.522 kg 97.522 kg 97.522 kg Intake: Intake, IV Titration 675 Amount Sodium Chloride 0.9% 1, 675 000 ml @ 75 mls/hr IV . [id number] [facility] Rx#:[id number] Other: Voiding Method Toilet - Exam General: [non toxic], [no distress], [appears at stated age] Derm: [warm], [dry] Head: [atraumatic], [normocephalic], [symmetric] Eyes: [EOMI], [no lid lag], [anicteric sclera] Mouth: [no lip lesion], [mucus membranes moist] Cardiovascular: [S1S2 reg], [no murmur], [positive DP pulse bilateral], Lungs: [CTA bilateral], [no rhonchi, no rales] , [no accessory muscle use] Abdominal: [soft], [ right lower quadrant tenderness without rebound], [no guarding], [no appreciable organomegaly], [hyperactive bowel sounds] Ext: [no gross muscle atrophy], [no edema], [no contractures] Neuro: [no focal neuro deficits] Psych: [Alert], [oriented], [appropriate affect] - Labs CBC & Chem 7: 08/05/19 06:23 08/05/19 06:23 Labs: Abnormal Lab Results - Last 24 Hours (Table) 08/04/19 08/04/19 08/05/19 Range/Units 16:50 16:50 06:23 WBC 15.9 H 15.9 H (3.8-10.6) k/uL Neutrophils # 11.8 H (1.3-7.7) k/uL ESR (0-15) mm/hr Potassium (3.5-5.1) mmol/L Creatinine 1.65 H (0.66-1.25) mg/dL Glucose (74-99) mg/dL Alkaline Phosphatase 127 H (38-126) U/L C-Reactive Protein (<10.0) mg/L 08/05/19 08/05/19 08/05/19 Range/Units 06:23 06:23 06:23 WBC (3.8-10.6) k/uL Neutrophils # (1.3-7.7) k/uL ESR 29 H (0-15) mm/hr Potassium 5.2 H (3.5-5.1) mmol/L Creatinine 1.42 H (0.66-1.25) mg/dL Glucose 129 H (74-99) mg/dL Alkaline Phosphatase (38-126) U/L C-Reactive Protein 39.5 H (<10.0) mg/L Assessment and Plan Assessment: Crohn's flare with partial bowel obstruction Hyperkalemia Acute kidney injury Leukocytosis There is a partial bowel junction as seen on CT abdomen and pelvis. GI has evaluated the patient and started the patient on Solu-Medrol 20 mg IV every 8 hours. He is given Zofran for nausea or vomiting. Morphine will be switched to Dilaudid as needed. I will transition his diet from clear liquids to full liquid diet. Patient is on ciprofloxacin by mouth for his colitis. Patient had a mildly elevated potassium of 5.2 which will be repeated tomorrow morning. His creatinine has improved from 1.6 5-1.42 is likely prerenal from dehydration. We will continue normal saline at 75 mL per hour. His leukocytosis of 15.9 remains the same. This could be reactive, infectious or due to steroids. We will continue to monitor the patient. He is pending clinical improvement. Likely DC in 2-3 days.
[2019-08-05] MEDS: HYDROmorphone 0.5 MG/0.5 ML SYRINGE IVP PRN ×2 (18:48→22:08)
[2019-08-06] MEDS: HYDROmorphone 1 MG/ML 1 ML SYRINGE IVP PRN ×8 (01:49→23:38)
[2019-08-06] MEDS: CIPROFLOXACIN HCL 500 MG TAB PO SCH ×2 (07:43→20:15)
[2019-08-06] MEDS: HEPARIN SODIUM,PORCINE 5,000 UNIT/ML 1 ML VIAL SQ SCH ×3 (07:43→23:47)
[2019-08-06] MEDS: methylPREDNISolone SOD SUCCI 40 MG/ML 1 ML VIAL IV SCH ×3 (07:43→23:41)
[2019-08-06 08:08] LABS: Basophils % (A) 0 %; Eosinophils % (A) 0 %; HCT 41.8 % (39.0-53.0); HGB 13.5 gm/dL (13.0-17.5); Lymphocytes # (A) 0.8 k/uL (1.0-4.8); Lymphocytes % (A) 4 %; MCH 29.1 pg (25.0-35.0); MCHC 32.3 g/dL (31.0-37.0); MCV 90.2 fL (80.0-100.0); Monocytes # (A) 0.6 k/uL (0-1.0); Monocytes % (A) 3 %; Neutrophils # (A) 19.4 k/uL (1.3-7.7); Neutrophils % (A) 93 %; Platelet Count 346 k/uL (150-450); RBC 4.63 m/uL (4.30-5.90); RDW 13.7 % (11.5-15.5); WBC 20.9 k/uL (3.8-10.6)
[2019-08-06 10:00] LABS: Erythrocyte Sedimentation Rate 20 mm/hr (0-15)
[2019-08-06] MEDS: SODIUM CHLORIDE 0.9% 1,000 ML IV SCH ×2 (13:56→23:47)
--- NOTE | 2019-08-06 14:50 | P.PN ---
Subjective Progress Note Date: 08/06/19 Principal diagnosis: Partial bowel obstruction, Crohn's flare Patient was seen and examined. No acute events overnight. Patient reports continued right lower quadrant abdominal pain, 4/10 in severity. Patient reports having multiple bowel movement today. Passing plenty of gas. No nausea or vomiting. No fever or chills. Requesting a more regular diet. He denies any chest pain, shortness breath or palpitations. Objective - Vital Signs Vital signs: Vital Signs Temp 98.1 F 08/06/19 07:00 Pulse 60 08/06/19 07:00 Resp 16 08/06/19 07:45 BP 122/71 08/06/19 07:00 Pulse Ox 96 08/06/19 07:00 Intake & Output 08/05/19 08/06/19 08/06/19 18:59 06:59 18:59 Weight 97.522 kg Other: Voiding Method Toilet Toilet Toilet # Voids 1 2 - Exam General: [non toxic], [no distress], [appears at stated age] Derm: [warm], [dry] Head: [atraumatic], [normocephalic], [symmetric] Eyes: [EOMI], [no lid lag], [anicteric sclera] Mouth: [no lip lesion], [mucus membranes moist] Cardiovascular: [S1S2 reg], [no murmur], [positive DP pulse bilateral], Lungs: [CTA bilateral], [no rhonchi, no rales] , [no accessory muscle use] Abdominal: [soft], [ right lower quadrant tenderness without rebound], [no guarding], [no appreciable organomegaly], [hyperactive bowel sounds] Ext: [no gross muscle atrophy], [no edema], [no contractures] Neuro: [no focal neuro deficits] Psych: [Alert], [oriented], [appropriate affect] - Labs CBC & Chem 7: 08/06/19 07:00 08/05/19 06:23 Labs: Abnormal Lab Results - Last 24 Hours (Table) 08/06/19 08/06/19 Range/Units 07:00 07:00 WBC 20.9 H (3.8-10.6) k/uL Neutrophils # 19.4 H (1.3-7.7) k/uL Lymphocytes # 0.8 L (1.0-4.8) k/uL ESR 20 H (0-15) mm/hr C-Reactive Protein 21.3 H (<10.0) mg/L Assessment and Plan Assessment: Crohn's flare with partial bowel obstruction Hyperkalemia Acute kidney injury Leukocytosis There is a partial bowel obstruction as seen on CT abdomen and pelvis. GI has evaluated the patient and started the patient on Solu-Medrol 20 mg IV every 8 hours. He is given Zofran for nausea or vomiting. Dilaudid as needed for pain. I will transition his diet to GI soft. Patient is on ciprofloxacin by mouth for his colitis. Patient had a mildly elevated potassium of 5.2 which will be repeated today. His creatinine has improved from 1.65-1.42 is likely prerenal from dehydration. We will continue normal saline at 75 mL per hour. His leukocytosis has worsened to 20.9. This could be related due to steroids. We will continue to monitor the patient. He is pending clinical improvement. Likely DC in 2-3 days.
[2019-08-06 15:13] LABS: Calcium 9.3 mg/dL (8.4-10.2); Potassium 5.5 mmol/L (3.5-5.1)
--- NOTE | 2019-08-06 20:56 | P.PN ---
Subjective Progress Note Date: 08/06/19 Principal diagnosis: Crohn's disease, abdominal pain Patient is seen lying in bed today reporting abdominal pain is still present but overall improved. Patient passing gas and having bowel movements. No nausea or vomiting reported. He has tolerated diet today. Objective - Vital Signs Vital signs: Vital Signs Temp 98.2 F 08/06/19 15:00 Pulse 66 08/06/19 15:00 Resp 16 08/06/19 15:00 BP 140/81 08/06/19 15:00 Pulse Ox 95 08/06/19 15:00 Intake & Output 08/06/19 08/06/19 08/07/19 06:59 18:59 06:59 Other: Voiding Method Toilet Toilet # Voids 2 - Exam On physical examination, patient appears comfortable in no apparent distress. HEAD: Normocephalic, atraumatic. EYES: No scleral icterus. No conjunctival injection. MOUTH: No lesions, tongue midline. NECK: Trachea midline, no gross abnormalities. ABDOMEN: Soft and mildly tender to palpation in the right abdomen. Bowel sounds are positive. No organomegaly. No guarding or rigidity. EXTREMITIES: No pedal edema. SKIN: No rashes, no jaundice. NEUROLOGIC: Alert and oriented x3. No focal deficits. - Labs CBC & Chem 7: 08/06/19 07:00 08/06/19 07:00 Labs: Abnormal Lab Results - Last 24 Hours (Table) 08/06/19 08/06/19 08/06/19 Range/Units 07:00 07:00 07:00 WBC 20.9 H (3.8-10.6) k/uL Neutrophils # 19.4 H (1.3-7.7) k/uL Lymphocytes # 0.8 L (1.0-4.8) k/uL ESR 20 H (0-15) mm/hr Potassium 5.5 H (3.5-5.1) mmol/L Creatinine 1.36 H (0.66-1.25) mg/dL Glucose 115 H (74-99) mg/dL C-Reactive Protein 21.3 H (<10.0) mg/L Assessment and Plan (1) Crohn's ileitis Narrative/Plan: 44-year-old male with a history of Crohn's disease since 2003 requiring 2 surgeries in the past for stricturing disease in 2011 the patient underwent his last surgery currently the patient is maintained on biologic therapy but is required admissions in the past for abdominal pain and partial small bowel obst ruction. Patient also has perianal disease. Currently he follows with [facility] and is on medical treatment with Stelara, with plan at this time to increased dosing to every 4 weeks. Last colonoscopy approximately 5 years ago at [facility] was significant for acute active disease in the neoterminal ileum and at the anastomotic site. Patient presented with intractable abdominal pain and CT findings of a partial small bowel obstruction with dilation of the small bowel proximal to the anastomotic site. Current Visit: Yes Status: Acute Code(s): K50.00 - CROHN'S DISEASE OF SMALL INTESTINE WITHOUT COMPLICATIONS SNOMED Code(s): 41779950 (2) Intractable abdominal pain Current Visit: Yes Status: Acute Code(s): R10.9 - UNSPECIFIED ABDOMINAL PAIN SNOMED Code(s): 99727145 (3) Leukocytosis Current Visit: Yes Status: Acute Code(s): D72.829 - ELEVATED WHITE BLOOD CELL COUNT, UNSPECIFIED SNOMED Code(s): 564058830 (4) Crohns disease of small intestine Current Visit: No Status: Acute Code(s): K50.00 - CROHN'S DISEASE OF SMALL INTESTINE WITHOUT COMPLICATIONS SNOMED Code(s): 87115451 (5) Mechanical obstruction of the intestine Current Visit: Yes Status: Acute Code(s): K56.609 - UNSP INTESTNL OBST, UNSP TO PARTIAL VERSUS COMPLETE OBST SNOMED Code(s): 84360833 Plan: Supportive care Advance diet to low fiber, low residual tomorrow Continue Solu-Medrol 20 mg every 8 hours Continue IV fluid hydration Continue biologic therapy after discharge Follow-up with gastroenterology in the [facility] IBD service after discharge Thank you for allowing us to participate in the care of the patient
[2019-08-07] MEDS: HYDROmorphone 1 MG/ML 1 ML SYRINGE IVP PRN ×7 (02:28→21:15)
[2019-08-07] MEDS: KETOROLAC 30 MG/ML 1 ML VIAL IVP PRN (07:18)
[2019-08-07] MEDS: methylPREDNISolone SOD SUCCI 40 MG/ML 1 ML VIAL IV SCH ×3 (07:19→23:57)
[2019-08-07] MEDS: HEPARIN SODIUM,PORCINE 5,000 UNIT/ML 1 ML VIAL SQ SCH ×3 (07:19→23:57)
[2019-08-07 08:13] VITALS: RESP 16
[2019-08-07] MEDS: CIPROFLOXACIN HCL 500 MG TAB PO SCH ×2 (09:06→21:15)
[2019-08-07] MEDS: SODIUM CHLORIDE 0.9% 1,000 ML IV SCH ×2 (12:04→23:56)
--- NOTE | 2019-08-07 13:16 | P.PN ---
Subjective Progress Note Date: 08/07/19 Principal diagnosis: Partial bowel obstruction, Crohn's flare Patient was seen and examined. No acute events overnight. Patient reports continued right lower quadrant abdominal pain, 5/10 in severity. Passing plenty of gas. No nausea or vomiting. No fever or chills. Currently tolerating a low fiber diet well. He denies any chest pain, shortness breath or palpitations. Objective - Vital Signs Vital signs: Vital Signs Temp 97.9 F 08/07/19 07:22 Pulse 67 08/07/19 07:22 Resp 16 08/07/19 07:22 BP 127/78 08/07/19 07:22 Pulse Ox 96 08/07/19 07:22 Intake & Output 08/06/19 08/07/19 08/07/19 18:59 06:59 18:59 Other: Voiding Method Toilet Toilet Toilet # Voids 2 - Exam General: [non toxic], [no distress], [appears at stated age] Derm: [warm], [dry] Head: [atraumatic], [normocephalic], [symmetric] Eyes: [EOMI], [no lid lag], [anicteric sclera] Mouth: [no lip lesion], [mucus membranes moist] Cardiovascular: [S1S2 reg], [no murmur], [positive DP pulse bilateral], Lungs: [CTA bilateral], [no rhonchi, no rales] , [no accessory muscle use] Abdominal: [soft], [ right lower quadrant tenderness without rebound, improved], [no guarding], [no appreciable organomegaly] Ext: [no gross muscle atrophy], [no edema], [no contractures] Neuro: [no focal neuro deficits] Psych: [Alert], [oriented], [appropriate affect] - Labs CBC & Chem 7: 08/06/19 07:00 08/06/19 07:00 Labs: Abnormal Lab Results - Last 24 Hours (Table) 08/06/19 Range/Units 07:00 Potassium 5.5 H (3.5-5.1) mmol/L Creatinine 1.36 H (0.66-1.25) mg/dL Glucose 115 H (74-99) mg/dL Assessment and Plan Assessment: Crohn's flare with partial bowel obstruction Hyperkalemia Acute kidney injury Leukocytosis There is a partial bowel obstruction as seen on CT abdomen and pelvis. GI has evaluated the patient and started the patient on Solu-Medrol 20 mg IV every 8 hours. He is given Zofran for nausea or vomiting. Dilaudid as needed for pain. His diet has been transitioned to low fiber. Patient is on ciprofloxacin by mouth for his colitis. Patient had a mildly elevated potassium of 5.2-5.5 which will be repeated today STAT. His creatinine has improved from 1.65-1.42-1.36 is likely prerenal from dehydration. We will continue normal saline at 75 mL per hour. His leukocytosis has worsened to 20.9, this could be related due to steroids. Case discussed with patient and Dr. Caro, plans to continue IV Solumedrol for one more day. Analey discharge tomorrow if patient continues to improve.
--- NOTE | 2019-08-07 19:34 | P.PN ---
Subjective Progress Note Date: 08/07/19 Principal diagnosis: Crohn's disease, abdominal pain Patient seen lying in bed today. Tolerating diet. Still some abdominal pain but overall improved. Objective - Vital Signs Vital signs: Vital Signs Temp 98 F 08/07/19 14:10 Pulse 54 L 08/07/19 14:10 Resp 16 08/07/19 14:10 BP 131/82 08/07/19 14:10 Pulse Ox 96 08/07/19 14:10 Intake & Output 08/07/19 08/07/19 08/08/19 06:59 18:59 06:59 Intake Total 600 Balance 600 Intake: IV 600 Sodium Chloride 0.9% 1, 600 000 ml @ 75 mls/hr IV . [id number] Rx#:[id number] Other: Voiding Method Toilet Toilet # Voids 2 - Exam On physical examination, patient appears comfortable in no apparent distress. HEAD: Normocephalic, atraumatic. EYES: No scleral icterus. No conjunctival injection. MOUTH: No lesions, tongue midline. NECK: Trachea midline, no gross abnormalities. ABDOMEN: Soft and mildly tender to palpation in the right abdomen. Bowel sounds are positive. No organomegaly. No guarding or rigidity. EXTREMITIES: No pedal edema. SKIN: No rashes, no jaundice. NEUROLOGIC: Alert and oriented x3. No focal deficits. - Labs CBC & Chem 7: 08/06/19 07:00 08/07/19 13:29 Assessment and Plan (1) Crohn's ileitis Narrative/Plan: 44-year-old male with a history of Crohn's disease since 2003 requiring 2 surgeries in the past for stricturing disease in 2011 the patient underwent his last surgery currently the patient is maintained on biologic therapy but is required admissions in the past for abdominal pain and partial small bowel obstruction. Patient also has perianal disease. Currently he follows with [facility] and is on medical treatment with Stelara, with plan at this time to increased dosing to every 4 weeks. Last colonoscopy approximately 5 years ago at [facility] was significant for acute active disease in the neote rminal ileum and at the anastomotic site. Patient presented with intractable abdominal pain and CT findings of a partial small bowel obstruction with dilation of the small bowel proximal to the anastomotic site. Current Visit: Yes Status: Acute Code(s): K50.00 - CROHN'S DISEASE OF SMALL INTESTINE WITHOUT COMPLICATIONS SNOMED Code(s): 36394440 (2) Intractable abdominal pain Current Visit: Yes Status: Acute Code(s): R10.9 - UNSPECIFIED ABDOMINAL PAIN SNOMED Code(s): 05132689 (3) Leukocytosis Current Visit: Yes Status: Acute Code(s): D72.829 - ELEVATED WHITE BLOOD CELL COUNT, UNSPECIFIED SNOMED Code(s): 919833033 (4) Crohns disease of small intestine Current Visit: No Status: Acute Code(s): K50.00 - CROHN'S DISEASE OF SMALL INTESTINE WITHOUT COMPLICATIONS SNOMED Code(s): 86361296 (5) Mechanical obstruction of the intestine Current Visit: Yes Status: Acute Code(s): K56.609 - UNSP INTESTNL OBST, UNSP TO PARTIAL VERSUS COMPLETE OBST SNOMED Code(s): 67555142 Plan: Supportive care Advance diet to low fiber, low residual tomorrow Continue Solu-Medrol 20 mg every 8 hours, if doing well tomorrow anticipate discharge on 40 mg prednisone to be tapered by 10 mg every 10 days until completion Continue IV fluid hydration Continue biologic therapy after discharge Follow-up with gastroenterology in the [facility] IBD service after discharge Thank you for allowing us to participate in the care of the patient
[2019-08-08] MEDS: HYDROmorphone 1 MG/ML 1 ML SYRINGE IVP PRN ×4 (00:04→09:10)
[2019-08-08 07:57] VITALS: BP 147/84; PULSE 70; TEMP 98.1
[2019-08-08] MEDS: HEPARIN SODIUM,PORCINE 5,000 UNIT/ML 1 ML VIAL SQ SCH (09:10)
[2019-08-08] MEDS: CIPROFLOXACIN HCL 500 MG TAB PO SCH (09:11)
[2019-08-08] MEDS: methylPREDNISolone SOD SUCCI 40 MG/ML 1 ML VIAL IV SCH (09:11)
--- NOTE | 2019-08-08 10:18 | P.DS ---
Providers Date of admission: 08/04/19 18:04 Expected date of discharge: 08/08/19 Attending physician: Arvind Aiken MD Consults: 08/04/19 18:07 Consult Physician Stat Consulting Provider: Vinay Caro Consult Reason/Comments: Mechanical obstruction, Crohn's flare Do you want consulting provider notified?: Yes Primary care physician: Stated None Hospital Course: The patient is a 44 yo M with a PMH of crohn's disease (diagnosed 2003), s/p bowel resection, complicated by perianal fistulas and multiple relapses, currently on biologic medications presented to the ED with complaints of gradually worsening abdominal pain, with diarrhea and nausea. The patient notes that his symptoms started 3-4 days ago when he developed a mild right lower quadrant abdominal pain. He notes that the pain gradually worsened, and he then developed watery diarrhea along with subjective fevers and nausea. He denied vomiting. He also denied recent travel, sick contacts, cough, chest pain, shortness of breath, or dizziness. He reports that this is similar to his previous episodes of Crohn's flare-ups. The patient underwent an extensive evaluation in the emergency room with an abdomen/pelvis computed tomography scan with contrast revealing distal ileum inflammatory changes with wall thickening and some dilated loops proximal to the narrowing and possible partial mechanical obstruction. Laboratory evaluation revealed a WBC count of 15.9, hemoglobin 16.2, alkaline phosphatase 127, sodium 138, potassium 3.9, BUN 15, creatinine 1.65. The patient was given IV Solu-Medrol along with pain medications and IV fluids and is being admitted to the medicine service for further management of Crohn's flareup with GI on consult. GI has evaluated the patient and started the patient on Solu-Medrol 20 mg IV every 8 hours. He is given Zofran for nausea or vomiting. Dilaudid as needed for pain. His diet has been transitioned to low fiber. Patient is on ciprofloxacin by mouth for his colitis. Patient had a mildly elevated potassium of 5.2-5.5 which was within normal limits on discharge. His creatinine has improved from 1.65-1.42-1.36 which is likely prerenal from dehydration. Patient was seen and examined. No acute events overnight. Patient reports improved abdominal pain since admission. Had a bowel movement today normal. He denies any chest pain, shortness of breath or palpitations. No nausea or vomiting. No fever or chills. General: [non toxic], [no distress], [appears at stated age] Derm: [warm], [dry] Head: [atraumatic], [normocephalic], [symmetric] Eyes: [EOMI], [no lid lag], [anicteric sclera] Mouth: [no lip lesion], [mucus membranes moist] Cardiovascular: [S1S2 reg], [no murmur], [positive DP pulse bilateral], Lungs: [CTA bilateral], [no rhonchi, no rales] , [no accessory muscle use] Abdominal: [soft], [ right lower quadrant tenderness without rebound, improved], [no guarding], [no appreciable organomegaly] Ext: [no gross muscle atrophy], [no edema], [no contractures] Neuro: [no focal neuro deficits] Psych: [Alert], [oriented], [appropriate affect] Crohn's flare with partial bowel obstruction Hyperkalemia Acute kidney injury Leukocytosis Patient will be discharged home on a Medrol Dosepak. He is to continue ciprofloxacin by mouth for colitis. His hyperkalemia has resolved. His acute kidney injury is improving. He hasn't been encourage hydration by mouth. Leukocytosis is likely related to steroids. Plans on DC today. Pertinent Studies: CT abdomen and pelvis Patient Condition at Discharge: Stable Plan - Discharge Summary Discharge Rx Participant: Yes New Discharge Prescriptions: New Ciprofloxacin HCl [Cipro] 500 mg PO BID tab methylPREDNISolone Dose Pack [Medrol Dose Pack] 4 mg PO DIRECTED #21 package HYDROcodone/APAP 10-325MG [[place] 10-325] 1 tab PO Q4HR PRN 3 Days #18 tab PRN Reason: Pain Continue Ustekinumab [Stelara] See Taper SQ DIRECTED [place]-3 Fatty Acids/Fish Oil [Fish Oil 1,000 mg Softgel] 1 cap PO DAILY Flaxseed Oil 1,000 mg PO BID Ciprofloxacin HCl [Cipro] 500 mg PO Q12H #28 tab Discharge Medication List Flaxseed Oil 1,000 mg PO BID 08/04/19 [History] [place]-3 Fatty Acids/Fish Oil [Fish Oil 1,000 mg Softgel] 1 cap PO DAILY 08/04/19 [History] Ustekinumab [Stelara] See Taper SQ DIRECTED 08/04/19 [History] Ciprofloxacin HCl [Cipro] 500 mg PO BID tab 08/08/19 [Rx] Ciprofloxacin HCl [Cipro] 500 mg PO Q12H #28 tab 08/08/19 [Rx] HYDROcodone/APAP 10-325MG [[place] 10-325] 1 tab PO Q4HR PRN 3 Days #18 tab 08/08/19 [Rx] methylPREDNISolone Dose Pack [Medrol Dose Pack] 4 mg PO DIRECTED #21 package 08/08/19 [Rx] Follow up Appointment(s)/Referral(s): None,Stated [Primary Care Provider] - 1-2 days Vinay Caro MD [STAFF PHYSICIAN] - 1 Week Activity/Diet/Wound Care/Special Instructions: Diet: Low fiber Follow-up PCP within 3 days of discharge. Follow-up with gastroenterology within 1 week of discharge. Take all medications as advised.
== END 2019-08-08 12:52 | disposition home or self-care (01) | DRG 386 ==
LOC: EC 16:22 → 4SSUR 18:04
PROVIDERS: ADMIT Family Medicine; ATTEND Family Medicine
DX: K50.812 Crohn's disease of both small and large intestine with intestinal obstruction (principal); N17.9 Acute kidney failure, unspecified; E86.0 Dehydration; E87.5 Hyperkalemia; Z90.49 Acquired absence of other specified parts of digestive tract; Z98.890 Other specified postprocedural states; Z87.891 Personal history of nicotine dependence; Z80.1 Family history of malignant neoplasm of trachea, bronchus and lung; Z82.49 Family history of ischemic heart disease and other diseases of the circulatory system
CPT/HCPCS: 36415; 74177; 80048; 80053; 81003; 82150; 83605; 83690; 84132; 85025; 85027; 85610; 85652; 85730; 86140; 96361; 96374; 96375; 96376; 99285

== ENCOUNTER 2019-12-12 06:35 | Emergency (ER) | payer OTHER ==
[2019-12-12 06:41] VITALS: TEMP 98.2
[2019-12-12] MEDS ORDERED: SODIUM CHLORIDE 0.9% 1,000 ML IV ONE (06:43)
[2019-12-12] MEDS ORDERED: SODIUM CHLORIDE 0.9% 500 ML 500 ML IV ONE (06:43)
[2019-12-12] MEDS ORDERED: SODIUM CHLORIDE 0.9% 1,000 ML IV SCH (06:45)
[2019-12-12] MEDS ORDERED: HYDROmorphone 0.5 MG/0.5 ML SYRINGE IVP STA ×2 (06:46→07:57)
--- NOTE | 2019-12-12 06:51 | ED ---
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 Patient states he ate 7 ears of corn a few days prior and is not sure if this is correlated. Denies increased anal pain, states he feel the fistula is not worsening. Endorses diffuses severe abdominal pain. Denies diarrhea, vomiting, fevers. Denies additional complaints. Patient GI physician is Dr. Caro and he sees general surgeon at [facility]. (Garima Strange) - Related Data Home Medications Medication Instructions Recorded Confirmed Multivitamins, Thera [Multivitamin 1 tab PO DAILY 12/12/19 12/12/19 (formulary)] Turmeric Root Extract [Turmeric] 500 mg PO DAILY 12/12/19 12/12/19 azaTHIOprine [Imuran] 50 mg PO DAILY 12/12/19 12/12/19 inFLIXimab [Remicade] 100 mg IVPB DIRECTED 12/12/19 12/12/19 predniSONE [Deltasone] 20 mg PO DAILY 12/12/19 12/12/19 Previous Rx's Medication Instructions Recorded Ciprofloxacin HCl [Cipro] 500 mg PO BID tab 08/08/19 Allergies Allergy/AdvReac Type Severity Reaction Status Date / Time No Known Allergies Allergy Verified 12/12/19 07:19 Review of Systems ROS Other: All systems not noted in ROS Statement are negative. <Garima Strange - Last Filed: 12/12/19 08:07> ROS Other: All systems not noted in ROS Statement are negative. <Maritza Piedra - Last Filed: 12/12/19 21:21> ROS Statement: Those systems with pertinent positive or pertinent negative responses have been documented in the HPI. Past Medical History Additional Past Medical History / Comment(s): Crohn's disease with injections every 8 weeks, past bronchitis, "occ leg swelling" History of Any Multi-Drug Resistant Organisms: None Reported Past Surgical History: Appendectomy, Bowel Resection, Orthopedic Surgery Additional Past Surgical History / Comment(s): Colonoscopy, bowel resection x 2, rt ankle tendon/ligament repair and lt index finger surgery d/t crushing injury from hydrolic press Past Anesthesia/Blood Transfusion Reactions: No Reported Reaction Past Psychological History: No Psychological Hx Reported Past Alcohol Use History: None Reported Past Drug Use History: None Reported - Past Family History Mother Family Medical History: Cancer Additional Family Medical History / Comment(s): Lung CA Father Family Medical History: Chest Pain / Angina, Deep Vein Thrombosis (DVT) Additional Family Medical History / Comment(s): heart disease,poor circulation <Garima Strange - Last Filed: 12/12/19 08:07> General Exam Limitations: no limitations <Garima Strange - Last Filed: 12/12/19 08:07> - General Exam Comments Initial Comments: General: The patient is awake and alert, in no distress, and does not appear acutely ill. Eye: +3 mm pupils are equal, round and reactive to light, extra-ocular movements are intact. No nystagmus. There is normal conjunctiva bilaterally. No signs of icterus. Cardiovascular: There is a regular rate and rhythm. No murmur, rub or gallop is appreciated. Respiratory: Lungs are clear to auscultation, respirations are non-labored, breath sounds are equal. No wheezes, stridor, rales, or rhonchi. Gastrointestinal: Soft, non-distended, diffusely tender abdomen more so right sided, pain with flexion of the left hip, abdomen without masses or organomegaly noted. There is no rebound or guarding present. No CVA tenderness. Bowel sounds are unremarkable. Musculoskeletal: Normal ROM, no tenderness. Strength 5/5. Sensation intact. Radial pulses equal bilaterally 2+. Neurological: A&O x 3. CN II-XII intact grossly, There are no obvious motor or sensory deficits. Coordination appears grossly intact. Speech is normal. Skin: Skin is warm and dry and no rashes or lesions are noted. Psychiatric: Cooperative, appropriate mood & affect, normal judgment. (Garmia Strange) Course Vital Signs 12/12/19 12/12/19 06:37 08:23 Temperature 98.2 F Pulse Rate 84 86 Respiratory 18 16 Rate Blood Pressure 158/90 132/56 O2 Sat by Pulse 100 99 Oximetry Medical Decision Making - Lab Data Result diagrams: 12/12/19 06:54 12/12/19 06:54 <Garima Strange - Last Filed: 12/12/19 08:07> - Lab Data Result diagrams: 12/12/19 06:54 12/12/19 06:54 <Maritza Piedra - Last Filed: 12/12/19 21:21> - Medical Decision Making 44yo male presenting to the Er today for cc of abdominal pain, nausea. On steroids-prednisone 20mg, Remicade infusions and imuran. Patient CT has significant findings including iliopsoas abscess, ileus. Patient does apperas to have inflammatory changes of the distal ileum on person review with free fluid in the pelvis. Patient pain managed with dilaudid. Patient givne IVF. Zosyn initiated in ER. Patient will be transferred to [facility] where his surgeon Robert Barron practices for continuity of care. Patient is agreeable and prefers transfer. Patient case discussed and CT reviewed with attending Dr. Piedra who is agreeable to care plan and transfer. Transfer accepted by Dr. Jarquin (Garima Strange) I was available for consultation in the emergency department. The history and physical exam were done by the midlevel provider. I was consulted for this patients care. I reviewed the case with the midlevel provider and based on their presentation of the patient, I agree with the assessment, medical decision making and plan of care as documented. Chart was dictated using [employer] dictation software. Attempts were made to correct any dictation errors however some typographical errors may persist. Patient was seen during a national state of emergency due to the Covid-19 pandemic. (Maritza Piedra) - Lab Data Lab Results 12/12/19 12/12/19 12/12/19 Range/Units 06:54 06:54 06:54 WBC 21.3 H (3.8-10.6) k/uL RBC 4.97 (4.30-5.90) m/uL Hgb 14.2 (13.0-17.5) gm/dL Hct 44.1 (39.0-53.0) % MCV 88.6 (80.0-100.0) fL MCH 28.5 (25.0-35.0) pg MCHC 32.2 (31.0-37.0) g/dL RDW 14.4 (11.5-15.5) % Plt Count 572 H (150-450) k/uL Neutrophils % 83 % Lymphocytes % 11 % Monocytes % 4 % Eosinophils % 0 % Basophils % 0 % Neutrophils # 17.7 H (1.3-7.7) k/uL Lymphocytes # 2.4 (1.0-4.8) k/uL Monocytes # 0.9 (0-1.0) k/uL Eosinophils # 0.1 (0-0.7) k/uL Basophils # 0.1 (0-0.2) k/uL Sodium 139 (137-145) mmol/L Potassium 4.8 (3.5-5.1) mmol/L Chloride 102 (98-107) mmol/L Carbon Dioxide 28 (22-30) mmol/L Anion Gap 9 mmol/L BUN 10 (9-20) mg/dL Creatinine 1.23 (0.66-1.25) mg/dL Est GFR (CKD-EPI)AfAm 84 (>60 ml/min/1.73 sqM) Est GFR (CKD-EPI)NonAf 72 (>60 ml/min/1.73 sqM) Glucose 113 H (74-99) mg/dL Plasma Lactic Acid Narinder 1.5 (0.7-2.0) mmol/L Calcium 10.0 (8.4-10.2) mg/dL Total Bilirubin 0.8 (0.2-1.3) mg/dL AST 20 (17-59) U/L ALT 20 (4-49) U/L Alkaline Phosphatase 114 (38-126) U/L Total Protein 7.2 (6.3-8.2) g/dL Albumin 4.2 (3.5-5.0) g/dL Lipase 56 (23-300) U/L Disposition Is patient prescribed a controlled substance at d/c from ED?: No Time of Disposition: 08:10 - Out of Hospital Transfer - Req. Specs Out of Hospital Transfer - Requested Specifics: Other Emergency Center ([facility]) <Garima Strange - Last Filed: 12/12/19 08:07> <Maritza Piedra - Last Filed: 12/12/19 21:21> Clinical Impression: Iliopsoas abscess on right, Abdominal pain, Leukocytosis Disposition: OTHER INSTITUTION NOT DEFINED Condition: Stable Referrals: Carrington Naik MD [Primary Care Provider] - 1-2 days
[2019-12-12] MEDS ORDERED: ONDANSETRON 4 MG/2 ML VIAL IVP STA (06:57)
[2019-12-12 07:03] LABS: Basophils # (A) 0.1 k/uL (0-0.2); Basophils % (A) 0 %; Eosinophils # (A) 0.1 k/uL (0-0.7); Eosinophils % (A) 0 %; HCT 44.1 % (39.0-53.0); HGB 14.2 gm/dL (13.0-17.5); Lymphocytes # (A) 2.4 k/uL (1.0-4.8); Lymphocytes % (A) 11 %; MCH 28.5 pg (25.0-35.0); MCHC 32.2 g/dL (31.0-37.0); MCV 88.6 fL (80.0-100.0); Mean Platelet Volume 6.2; Monocytes # (A) 0.9 k/uL (0-1.0); Monocytes % (A) 4 %; Neutrophils # (A) 17.7 k/uL (1.3-7.7); Neutrophils % (A) 83 %; Platelet Count 572 k/uL (150-450); RBC 4.97 m/uL (4.30-5.90); RDW 14.4 % (11.5-15.5); WBC 21.3 k/uL (3.8-10.6)
[2019-12-12 07:25] LABS: Albumin 4.2 g/dL (3.5-5.0); Potassium 4.8 mmol/L (3.5-5.1); Total Bilirubin 0.8 mg/dL (0.2-1.3); Total Protein 7.2 g/dL (6.3-8.2)
[2019-12-12] MEDS ORDERED: PIPERACILLIN-TAZOBACTAM 3.375 GM in SODIUM CHLORIDE 0.9% 100 ML IVPB STA (07:56)
--- NOTE | 2019-12-12 07:56 | CT ---
EXAMINATION TYPE: CT abdomen pelvis w con DATE OF EXAM: 12/12/2019 REFERENCE: Previous study dated 08/04/2019. HISTORY: crohns history-severe abdominal pain HISTORY: Crohns disease-severe abdominal pain CT DLP: 1104.8 mGy Automated exposure control for dose reduction was used. TECHNIQUE: Helical acquisition through the abdomen and pelvis was obtained following the oral ingesti on of without Oral Contrast and following intravenous administration of 100 ml mL of Isovue 300. The data was reformatted in axial, coronal and sagittal projections. FINDINGS: Visualized portions of the lungs are clear. There is no pleural or pericardial fluid the h eart is not enlarged. Within the abdomen, the liver is mildly prominent measuring 20 cm. The gallbladder is mildly distende d. r there is a stable, 1.5. Low-attenuation in the anterior aspect of the spleen, unchanged from pre vious. Both adrenal glands are normal. Both kidneys demonstrate function. There is slight delay in excretion on the right. There is an extra renal pelvis on the right. Limited views of the pancreas are unremarkable. There is enlargement of the right psoas muscle. There is a 5.2 x 3.2 x 2.2 cm area of low attenuation within the iliopsoas muscle. This is surrounded by soft tissue stranding. I suspect this represents an abscess. There is been previous right lower quadrant surgery. There are surgical clips in place. There is no significant retroperitoneal, iliac or inguinal adenopathy. The bladder wall is slightly thickened but is not fully distended. There is free fluid within the pelvis. There is evidence of diverticulosis within the sigmoid colon b ut no evidence of diverticulitis. There is dilated loops of ileum within the pelvis. There is sacralization of the contents suggesting stasis. This may represent localized ileus. No free air is seen. No bony lesion is identified. IMPRESSION: 1. RIGHT-SIDED, 5.2 X 3.2 X 2.3 CM ILIOPSOAS ABSCESS. THERE IS ADJACENT STRANDING. 2. DILATATION OF THE DISTAL ILEUM MAY REPRESENT LOCALIZED ILEUS SECONDARY TO INFLAMMATION. ENTERITIS IS NOT EXCLUDED. 3. FREE FLUID WITHIN THE PELVIS. 4. MILD HEPATOMEGALY. 5. SLIGHT DELAY IN EXCRETION OF CONTRAST ON THE RIGHT LIKELY DUE TO LOCALIZED INFLAMMATION. THIS REPORT WAS PHONED TO DR. CARDOSO IN THE ER AT THE TIME OF REPORTING.
[2019-12-12 08:25] VITALS: BP 132/56; PULSE 86; RESP 16
== END 2019-12-12 08:56 | disposition other institution (70) ==
LOC: EC 06:35
DX: K68.12 Psoas muscle abscess (principal); D72.829 Elevated white blood cell count, unspecified; K60.3 Anal fistula; K50.90 Crohn's disease, unspecified, without complications; Z79.899 Other long term (current) drug therapy; Z79.51 Long term (current) use of inhaled steroids; Z90.89 Acquired absence of other organs
CPT/HCPCS: 36415; 80053; 83605; 83690; 85025; 87040; 74177; 99285; 96365; 96375 ×2; 96376; 96361; J2543; J2405; J1170; Q9967

== ENCOUNTER 2020-11-19 22:03 | Observation (INO) | payer BC, OTHER ==
[2020-11-19] MEDS ORDERED: ONDANSETRON 4 MG/2 ML VIAL IVP STA (23:04)
[2020-11-19] MEDS ORDERED: SODIUM CHLORIDE 0.9% 1,000 ML IV ONE (23:04)
[2020-11-19] MEDS ORDERED: HYDROmorphone 1 MG/ML 1 ML SYRINGE IVP STA (23:04)
--- NOTE | 2020-11-19 23:18 | ED ---
Abdominal Pain HPI - General Chief Complaint: Abdominal Pain Stated Complaint: Crohns flare up Time Seen by Provider: 11/19/20 22:09 Source: patient Mode of arrival: ambulatory Limitations: no limitations - History of Present Illness Initial Comments: This patient is a 45-year-old man with history of Crohn's disease who presents with complaint that it feels like his Crohn's disease is flaring up. Patient states that he is nearly due to have a Remicade injection. He had been performing a steroid taper and had gone down on the steroids when he started having pain yesterday. He states that when he noticed the pain coming on he did try increasing his steroid dose today but he continues to have some pains. Also some associated nausea. He noted a fever at home prior to coming in. Patient has not had vomiting. No change in urination or bowel movements noted. MD Complaint: abdominal pain Onset/Timin -: days(s) Location: RLQ Radiation: none Migration to: no migration Severity: moderate Quality: aching, sharp Consistency: constant Improves With: nothing Worsens With: nothing Associated Symptoms: nausea - Related Data Home Medications Medication Instructions Recorded Confirmed Multivitamins, Thera [Multivitamin 1 tab PO DAILY 12/12/19 12/12/19 (formulary)] Turmeric Root Extract [Turmeric] 500 mg PO DAILY 12/12/19 12/12/19 azaTHIOprine [Imuran] 50 mg PO DAILY 12/12/19 12/12/19 inFLIXimab [Remicade] 100 mg IVPB DIRECTED 12/12/19 12/12/19 predniSONE [Deltasone] 20 mg PO DAILY 12/12/19 12/12/19 Previous Rx's Medication Instructions Recorded Ciprofloxacin HCl [Cipro] 500 mg PO BID tab 08/08/19 Allergies Allergy/AdvReac Type Severity Reaction Status Date / Time No Known Allergies Allergy Verified 11/19/20 22:05 Review of Systems ROS Statement: Those systems with pertinent positive or pertinent negative responses have been documented in the HPI. ROS Other: All systems not noted in ROS Statement are negative. Constitutional: Reports: fever. Denies: chills, weakness Respiratory: Denies: cough, dyspnea Cardiovascular: Denies: chest pain, palpitations, edema Gastrointestinal: Reports: abdominal pain, nausea. Denies: vomiting, diarrhea, constipation, melena, hematochezia Genitourinary: Denies: dysuria, hematuria, testicular pain, testicular mass Musculoskeletal: Denies: back pain Skin: Denies: rash Neurological: Denies: headache, weakness Past Medical History Additional Past Medical History / Comment(s): Crohn's disease with injections every 8 weeks, past bronchitis, "occ leg swelling" History of Any Multi-Drug Resistant Organisms: None Reported Past Surgical History: Appendectomy, Bowel Resection, Orthopedic Surgery Additional Past Surgical History / Comment(s): Colonoscopy, bowel resection x 2, rt ankle tendon/ligament repair and lt index finger surgery d/t crushing injury from hydrolic press Past Anesthesia/Blood Transfusion Reactions: No Reported Reaction Past Psychological History: No Psychological Hx Reported Smoking Status: Never smoker Past Alcohol Use History: None Reported Past Drug Use History: None Reported - Past Family History Mother Family Medical History: Cancer Additional Family Medical History / Comment(s): Lung CA Father Family Medical History: Chest Pain / Angina, Deep Vein Thrombosis (DVT) Additional Family Medical History / Comment(s): heart disease,poor circulation General Exam Limitations: no limitations General appearance: alert, in no apparent distress Head exam: Present: atraumatic, normocephalic Eye exam: Present: normal appearance. Absent: scleral icterus, conjunctival injection Respiratory exam: Present: normal lung sounds bilaterally. Absent: respiratory distress, wheezes, rales, rhonchi, stridor Cardiovascular Exam: Present: regular rate, normal rhythm, normal heart sounds. Absent: systolic murmur, diastolic murmur, rubs, gallop GI/Abdominal exam: Present: soft, tenderness. Absent: distended, guarding, rebound, rigid, mass, pulsatile mass, hernia Extremities exam: Present: normal inspection, normal capillary refill. Absent: pedal edema, calf tenderness Back exam: Present: normal inspection. Absent: CVA tenderness (R), CVA tenderness (L) Neurological exam: Present: alert Skin exam: Present: warm, dry, intact, normal color. Absent: rash Course Vital Signs 11/19/20 11/20/20 22:05 00:15 Temperature 98 F Pulse Rate 86 81 Respiratory 16 18 Rate Blood Pressure 153/89 155/90 O2 Sat by Pulse 96 93 L Oximetry Medical Decision Making - Lab Data Result diagrams: 11/19/20 23:10 11/19/20 23:10 Lab Results 11/19/20 11/19/20 11/20/20 Range/Units 23:10 23:10 00:14 WBC 16.1 H (3.8-10.6) k/uL RBC 5.03 (4.30-5.90) m/uL Hgb 15.5 (13.0-17.5) gm/dL Hct 48.3 (39.0-53.0) % MCV 96.0 (80.0-100.0) fL MCH 30.9 (25.0-35.0) pg MCHC 32.1 (31.0-37.0) g/dL RDW 13.5 (11.5-15.5) % Plt Count 299 (150-450) k/uL MPV 7.1 Neutrophils % 73 % Lymphocytes % 18 % Monocytes % 7 % Eosinophils % 0 % Basophils % 1 % Neutrophils # 11.7 H (1.3-7.7) k/uL Lymphocytes # 3.0 (1.0-4.8) k/uL Monocytes # 1.0 (0-1.0) k/uL Eosinophils # 0.1 (0-0.7) k/uL Basophils # 0.1 (0-0.2) k/uL Sodium 140 (137-145) mmol/L Potassium 3.7 (3.5-5.1) mmol/L Chloride 106 (98-107) mmol/L Carbon Dioxide 27 (22-30) mmol/L Anion Gap 7 mmol/L BUN 17 (9-20) mg/dL Creatinine 1.19 (0.66-1.25) mg/dL Est GFR (CKD-EPI)AfAm 86 (>60 ml/min/1.73 sqM) Est GFR (CKD-EPI)NonAf 75 (>60 ml/min/1.73 sqM) Glucose 105 H (74-99) mg/dL Calcium 9.3 (8.4-10.2) mg/dL Total Bilirubin 0.6 (0.2-1.3) mg/dL AST 41 (17-59) U/L ALT 30 (4-49) U/L Alkaline Phosphatase 58 (38-126) U/L C-Reactive Protein 0.6 (<1.0) mg/dL Total Protein 6.6 (6.3-8.2) g/dL Albumin 4.1 (3.5-5.0) g/dL Amylase 67 (30-110) U/L Lipase 146 (23-300) U/L Urine Color Yellow Urine Appearance Clear (Clear) Urine pH 5.5 (5.0-8.0) Ur Specific [place] 1.036 H (1.001-1.035) Urine Protein Trace H (Negative) Urine Glucose (UA) Negative (Negative) Urine Ketones Negative (Negative) Urine Blood Negative (Negative) Urine Nitrite Negative (Negative) Urine Bilirubin Negative (Negative) Urine Urobilinogen <2.0 (<2.0) mg/dL Ur Leukocyte Esterase Negative (Negative) Disposition Referrals: Carrington Naik MD [Primary Care Provider] - 1-2 days
[2020-11-19 23:30] LABS: Basophils # (A) 0.1 k/uL (0-0.2); Basophils % (A) 1 %; Eosinophils # (A) 0.1 k/uL (0-0.7); Eosinophils % (A) 0 %; HCT 48.3 % (39.0-53.0); HGB 15.5 gm/dL (13.0-17.5); Lymphocytes % (A) 18 %; MCH 30.9 pg (25.0-35.0); MCHC 32.1 g/dL (31.0-37.0); Mean Platelet Volume 7.1; Monocytes % (A) 7 %; Neutrophils # (A) 11.7 k/uL (1.3-7.7); Neutrophils % (A) 73 %; Platelet Count 299 k/uL (150-450); RBC 5.03 m/uL (4.30-5.90); RDW 13.5 % (11.5-15.5); WBC 16.1 k/uL (3.8-10.6)
[2020-11-19 23:46] LABS: Albumin 4.1 g/dL (3.5-5.0); C Reactive Protein 0.6 mg/dL (<1.0); Calcium 9.3 mg/dL (8.4-10.2); Potassium 3.7 mmol/L (3.5-5.1); Total Bilirubin 0.6 mg/dL (0.2-1.3); Total Protein 6.6 g/dL (6.3-8.2)
[2020-11-20] MEDS ORDERED: HYDROmorphone 1 MG/ML 1 ML SYRINGE IVP STA (00:01)
[2020-11-20 01:11] LABS: Appearance,Urine Clear (Clear); Bilirubin,Urine Negative (Negative); Blood,Urine Negative (Negative); Color,Urine Yellow; Glucose,Urine (UA) Negative (Negative); Ketones,Urine Negative (Negative); Leukocyte Esterase,Urine Negative (Negative); Nitrite,Urine Negative (Negative); PH, Urine 5.5 (5.0-8.0); Protein,Urine Trace (Negative); Specific Gravity,Urine 1.036 (1.001-1.035); Urobilinogen,Urine <2.0 mg/dL (<2.0)
[2020-11-20] MEDS ORDERED: HYDROmorphone 0.5 MG/0.5 ML SYRINGE IVP PRN (01:28)
[2020-11-20] MEDS ORDERED: ONDANSETRON 4 MG/2 ML VIAL IVP PRN (01:28)
[2020-11-20] MEDS ORDERED: NALOXONE 0.4 MG/ML 1 ML VIAL IV PRN (01:28)
[2020-11-20] MEDS ORDERED: methylPREDNISolone SOD SUCCI 125 MG/2 ML VIAL IV STA (01:31)
[2020-11-20] MEDS: SODIUM CHLORIDE 0.9% 1,000 ML IV SCH ×2 (01:44→23:30)
[2020-11-20] MEDS: HYDROmorphone 1 MG/ML 1 ML SYRINGE IVP PRN ×7 (03:20→22:52)
[2020-11-20] MEDS: PANTOPRAZOLE 40 MG/10 ML VIAL IV SCH (08:18)
[2020-11-20] MEDS: azaTHIOprine 50 MG TAB PO SCH (08:18)
[2020-11-20] MEDS: predniSONE 20 MG TAB PO SCH (08:18)
[2020-11-20] MEDS: MULTIVITAMINS, THERA 1 EACH TAB PO SCH (08:18)
--- NOTE | 2020-11-20 17:13 | P.HPIM ---
History of Present Illness H&P Date: 11/20/20 Chief Complaint: Abdominal pain Mr. Ferrer is a 45-year-old male with a past medical history of Crohn's disease status post bowel resection coming into the hospital with a chief complaint of right-sided abdominal pain. Patient states that he feels like he is having a flareup of his Crohn's disease. He states for the past 2-3 days he has been having increasing right-sided abdominal pain. Yesterday when he had dinner and taking a stroll in the evening he noticed that his abdominal pain has worsened associated with diarrhea. Patient has blood in his stool, this is his usual when he has exacerbation of Crohn's symptoms. Patient denied having any vomiting but felt nauseous. He mentions that he is on Remicade every 6 weeks, his last dose was 5 weeks back. He is also doing the tapering dose of prednisone and thinks that whenever he tapers his prednisone dose his Crohn's symptoms flareup. Patient denies having any recorded temperatures but felt hot. He denies having any dysuria and hematuria. Denies having any lower back pain. Patient denies having any chest pain or palpitations. No cough or difficulty in breathing. No dysuria or hematuria. In the ED at the time of admission his vital signs temperature 90.8, heart rate 86, respiratory 16, blood pressure 153/89, saturating at 96% on room air. On reviewing his labs white count of 16, hemoglobin 15.5, platelets 299. Sodium 140, potassium 3.7, chloride 106, bicarb 27, BUN/creatinine 17, creatinine 1.19. Urine analysis is negative for nitrates and leukocyte esterase. Review of Systems REVIEW OF SYSTEMS: CONSTITUTIONAL: No fever, no malaise, no fatigue. HEENT: no headache, no neck stiffness, no blurring of vision CARDIOVASCULAR: No chest pain, palpitations or lower extremity swelling PULMONARY: No cough or difficulty in breathing GASTROINTESTINAL: As per HPI NEUROLOGICAL: no weakness of his extremities HEMATOLOGICAL: Denies any bleeding or petechiae. GENITOURINARY: Denies any burning micturition, frequency, or urgency. MUSCULOSKELETAL/RHEUMATOLOGICAL: Denies any joint pain, swelling, or any muscle pain. ENDOCRINE: Denies polyuria polydipsia no heat or cold intolerance The rest of the 14-point review of systems is negative. Past Medical History Additional Past Medical History / Comment(s): Crohn's disease with injections every 8 weeks, past bronchitis, "occ leg swelling" History of Any Multi-Drug Resistant Organisms: None Reported Past Surgical History: Appendectomy, Bowel Resection, Orthopedic Surgery Additional Past Surgical History / Comment(s): Colonoscopy, bowel resection x 2, rt ankle tendon/ligament repair and lt index finger surgery d/t crushing injury from hydrolic press. Past Anesthesia/Blood Transfusion Reactions: No Reported Reaction Past Psychological History: No Psychological Hx Reported Additional Psychological History / Comment(s): Pt resides with his spouse and 3 children. He has another rebecca that lives with his exspouse. He is independent. Smoking Status: Never smoker Past Alcohol Use History: None Reported Additional Past Alcohol Use History / Comment(s): started smoking age 18 smoked 1/2-1 and quit 2011 Past Drug Use History: None Reported - Past Family History Mother Family Medical History: Cancer Additional Family Medical History / Comment(s): Lung CA Father Family Medical History: Chest Pain / Angina, Deep Vein Thrombosis (DVT) Additional Family Medical History / Comment(s): heart disease,poor circulation Medications and Allergies Home Medications Medication Instructions Recorded Confirmed Type Multivitamins, Thera [Multivitamin 1 tab PO DAILY 12/12/19 11/20/20 History (formulary)] Turmeric Root Extract [Turmeric] 500 mg PO DAILY 12/12/19 11/20/20 History azaTHIOprine [Imuran] 50 mg PO DAILY 12/12/19 11/20/20 History inFLIXimab [Remicade] 1 dose IVPB Q42D 12/12/19 11/20/20 History L.acidoph,Paracasei, B.lactis 1 cap PO DAILY 11/20/20 11/20/20 History [Probiotic] Magnesium Oxide 400 mg PO DAILY 11/20/20 11/20/20 History [place]-3 Fatty Acids [[place]-3] 1,000 mg PO DAILY 11/20/20 11/20/20 History predniSONE 20 mg PO AC-BRKFST 11/20/20 11/20/20 History Allergies Allergy/AdvReac Type Severity Reaction Status Date / Time No Known Allergies Allergy Verified 11/20/20 10:23 Physical Exam Vitals: Vital Signs Temp Pulse Pulse Resp BP BP Pulse Ox 11/20/20 07:00 97.8 F 69 16 132/84 96 11/20/20 02:00 98.4 F 77 19 140/79 93 L 11/20/20 00:15 81 18 155/90 93 L 11/19/20 22:05 98 F 86 16 153/89 96 Intake and Output 11/19/20 11/20/20 11/20/20 22:59 06:59 14:59 Intake Total 180 Balance 180 Intake: Oral 180 Other: # Voids 1 Weight 102.058 kg 102.058 kg PHYSICAL EXAMINATION: GENERAL: Awake alert comfortably lying in bed appears to be no acute distress HEENT: Pupils are round and equally reacting to light. EOMI. No scleral icterus. No conjunctival pallor. CARDIOVASCULAR: S1 and S2 present. No murmurs, rubs, or gallops. PULMONARY: Bilateral breath sounds are positive. No wheeze or crackles. ABDOMEN: Soft, mild tenderness in the right lower quadrant, normal bowel sounds. No guarding or rigidity. MUSCULOSKELETAL: No joint swelling or deformity. EXTREMITIES: No edema NEUROLOGICAL: Patient is alert awake oriented 3. No focal deficits SKIN:No rash Results CBC & Chem 7: 11/19/20 23:10 11/19/20 23:10 Labs: Abnormal Lab Results - Last 24 Hours (Table) 11/19/20 11/19/20 11/20/20 Range/Units 23:10 23:10 00:14 WBC 16.1 H (3.8-10.6) k/uL Neutrophils # 11.7 H (1.3-7.7) k/uL Glucose 105 H (74-99) mg/dL Ur Specific [place] 1.036 H (1.001-1.035) Urine Protein Trace H (Negative) Thrombosis Risk Factor Assmnt - Choose All That Apply Any of the Below Risk Factors Present?: Yes Each Factor Represents 1 point: Minor surgery planned, Swollen legs (current) Other Risk Factors: No Other congenital or acquired thrombophilia - If yes, enter type in comment: No Thrombosis Risk Factor Assessment Total Risk Factor Score: 2 Thrombosis Risk Factor Assessment Level: Low Risk Assessment and Plan Assessment: ASSESSMENT Right lower quadrant Abdominal pain - most likely secondary to exacerbation of Crohn's History of bowel resection Leukocytosis probably secondary to above Fromer smoker PLAN: Patient has right lower abdominal quadrant pain which is secondary to exacerbation of Crohn's as his last dose of Remicade was 5 weeks back and also t hat he is doing tapering dose of prednisone. Patient will be kept nothing by mouth continue with IV fluids and supportive management for his pain. Patient has been restarted on his home medication and will continue with 20 mg of prednisone. We'll check stool for C. diff. Further recommendations to follow depending on the progress of the patient.
[2020-11-21] MEDS: HYDROmorphone 1 MG/ML 1 ML SYRINGE IVP PRN ×2 (02:16→06:19)
[2020-11-21] MEDS: SODIUM CHLORIDE 0.9% 1,000 ML IV SCH ×2 (02:21→02:29)
[2020-11-21 07:03] VITALS: BP 147/88; PULSE 58; RESP 18; TEMP 97.8
[2020-11-21] MEDS: PANTOPRAZOLE 40 MG/10 ML VIAL IV SCH (08:43)
[2020-11-21] MEDS: predniSONE 20 MG TAB PO SCH (08:44)
[2020-11-21] MEDS: azaTHIOprine 50 MG TAB PO SCH (08:44)
[2020-11-21] MEDS: MULTIVITAMINS, THERA 1 EACH TAB PO SCH (08:44)
--- NOTE | 2020-11-21 09:09 | P.DS ---
Providers Date of admission: 11/20/20 01:28 Attending physician: Lucho Small Primary care physician: Carrington Naik [facility] Course: Patient was admitted for exacerbation of Crohn's colitis. The patient is on infliximab and has been waiting for transfusion of this substance. They have been slowly tapering his prednisone and I suspect she went to a little bit lower dose before his infusion and had a flareup. The patient is nominal restarted on his prednisone 20 mg and is tolerating diet seem and comfortable and not complaining of any pain. No new voiding difficulties are stated now. The patient will be discharged in stable condition to follow-up with me in 3 days. Patient Condition at Discharge: Stable Plan - Discharge Summary New Discharge Prescriptions: Continue Multivitamins, Thera [Multivitamin (formulary)] 1 tab PO DAILY inFLIXimab [Remicade] 1 dose IVPB Q42D azaTHIOprine [Imuran] 50 mg PO DAILY Turmeric Root Extract [Turmeric] 500 mg PO DAILY Magnesium Oxide 400 mg PO DAILY L.acidoph,Paracasei, B.lactis [Probiotic] 1 cap PO DAILY predniSONE 20 mg PO AC-BRKFST [place]-3 Fatty Acids [[place]-3] 1,000 mg PO DAILY Discharge Medication List Multivitamins, Thera [Multivitamin (formulary)] 1 tab PO DAILY 12/12/19 [History] Turmeric Root Extract [Turmeric] 500 mg PO DAILY 12/12/19 [History] azaTHIOprine [Imuran] 50 mg PO DAILY 12/12/19 [History] inFLIXimab [Remicade] 1 dose IVPB Q42D 12/12/19 [History] L.acidoph,Paracasei, B.lactis [Probiotic] 1 cap PO DAILY 11/20/20 [History] Magnesium Oxide 400 mg PO DAILY 11/20/20 [History] [place]-3 Fatty Acids [[place]-3] 1,000 mg PO DAILY 11/20/20 [History] predniSONE 20 mg PO AC-BRKFST 11/20/20 [History] Follow up Appointment(s)/Referral(s): Carrington Naik MD [Primary Care Provider] - 3 Days
== END 2020-11-21 10:00 | disposition home or self-care (01) ==
LOC: EC 22:03 → 6NMEDSUR 11-20 01:28
PROVIDERS: ADMIT Family Medicine; ATTEND Family Medicine
DX: K50.111 Crohn's disease of large intestine with rectal bleeding (principal); Z79.52 Long term (current) use of systemic steroids; Z79.899 Other long term (current) drug therapy; Z90.49 Acquired absence of other specified parts of digestive tract; Z87.09 Personal history of other diseases of the respiratory system; Z87.891 Personal history of nicotine dependence; Z98.890 Other specified postprocedural states; Z80.1 Family history of malignant neoplasm of trachea, bronchus and lung; Z82.49 Family history of ischemic heart disease and other diseases of the circulatory system
CPT/HCPCS: 96376 ×3; 96361 ×3; 96375 ×3; 96374; 99284; 36415; 80053; 82150; 83690; 85025; 86140; 81003; G0378 ×2; J7500 ×2; J2930; J2405; J1170 ×3; J7512 ×2; C9113 ×2

== ENCOUNTER → 2020-11-25 | Outpatient (CLI) | payer BC, OTHER ==
[2020-11-26 03:14] LABS: Basophils # (A) 0.04 X 10*3/uL (0.00-0.10); Basophils % (A) 0.3 %; Eosinophils # (A) 0.02 X 10*3/uL (0.04-0.35); Eosinophils % (A) 0.1 %; HCT 51.3 % (39.6-50.0); Lymphocytes # (A) 2.09 X 10*3/uL (0.90-5.00); Lymphocytes % (A) 13.5 %; MCH 32.2 pg (27.0-32.0); MCHC 33.1 g/dL (32.0-37.0); MCV 97.2 fL (80.0-97.0); Mean Platelet Volume 10.4 fL (9.5-12.2); Monocytes % (A) 7.1 %; Neutrophils # (A) 12.15 X 10*3/uL (1.80-7.70); Neutrophils % (A) 78.5 %; Platelet Count 362 X 10*3/uL (140-440); RBC 5.28 X 10*6/uL (4.40-5.60); RDW 13.1 % (11.5-14.5); WBC 15.48 X 10*3/uL (4.50-10.00)
[2020-11-26 04:05] LABS: African American GFR (CKD) 60.3 (60.0-200.0); Albumin 4.7 g/dL (3.80-4.90); Albumin/Globulin Ratio 1.74 (1.60-3.17); Anion Gap 10.9 mmol/L (4.00-12.00); Calcium 9.5 mg/dL (8.7-10.3); Carbon Dioxide 25.1 mmol/L (21.6-31.8); Globulin 2.7 g/dL (1.6-3.3); Potassium 4.3 mmol/L (3.5-5.5); Total Bilirubin 0.6 mg/dL (0.3-1.2); Total Protein 7.4 g/dL (6.2-8.2)
== END | disposition home or self-care (01) ==
LOC: LABWHC1 15:47
PROVIDERS: ATTEND Internal Medicine
DX: K50.813 Crohn's disease of both small and large intestine with fistula (principal); Z79.899 Other long term (current) drug therapy
CPT/HCPCS: 36415; 80053; 85025

== ENCOUNTER → 2021-01-17 | Outpatient (CLI) | payer BC, OTHER ==
[2021-01-17 19:29] LABS: Basophils # (A) 0.04 X 10*3/uL (0.00-0.10); Basophils % (A) 0.3 %; Eosinophils # (A) 0 X 10*3/uL (0.04-0.35); Eosinophils % (A) 0 %; HCT 50.5 % (39.6-50.0); HGB 16.6 g/dL (13.0-17.0); Lymphocytes % (A) 9.1 %; MCH 31.3 pg (27.0-32.0); MCHC 32.9 g/dL (32.0-37.0); MCV 95.1 fL (80.0-97.0); Mean Platelet Volume 10.3 fL (9.5-12.2); Monocytes % (A) 3.8 %; Neutrophils # (A) 11.36 X 10*3/uL (1.80-7.70); Platelet Count 328 X 10*3/uL (140-440); RBC 5.31 X 10*6/uL (4.40-5.60); RDW 13.4 % (11.5-14.5)
[2021-01-18 05:46] LABS: ALT 33 U/L (10-49); AST 32 U/L (14-35)
== END | disposition home or self-care (01) ==
LOC: LABWHC1 12:13
PROVIDERS: ATTEND Internal Medicine
DX: K50.813 Crohn's disease of both small and large intestine with fistula (principal)
CPT/HCPCS: 36415; 84450; 84460; 85025

== ENCOUNTER → 2021-03-06 | Outpatient (CLI) | payer OTHER ==
[2021-03-06 18:53] LABS: Basophils # (A) 0.04 X 10*3/uL (0.00-0.10); Basophils % (A) 0.4 %; Eosinophils # (A) 0 X 10*3/uL (0.04-0.35); Eosinophils % (A) 0 %; HCT 46.4 % (39.6-50.0); HGB 15.1 g/dL (13.0-17.0); MCH 32.3 pg (27.0-32.0); MCHC 32.5 g/dL (32.0-37.0); MCV 99.1 fL (80.0-97.0); Mean Platelet Volume 9.7 fL (9.5-12.2); Monocytes # (A) 0.71 X 10*3/uL (0.20-1.00); Monocytes % (A) 7.1 %; Neutrophils # (A) 7.95 X 10*3/uL (1.80-7.70); Neutrophils % (A) 79.7 %; Platelet Count 377 X 10*3/uL (140-440); RBC 4.68 X 10*6/uL (4.40-5.60); RDW 14.7 % (11.5-14.5); WBC 9.98 X 10*3/uL (4.50-10.00)
[2021-03-06 21:05] LABS: ALT 75 U/L (10-49); AST 36 U/L (14-35)
== END | disposition home or self-care (01) ==
LOC: LABWHC1 12:24
PROVIDERS: ATTEND Internal Medicine
DX: K50.813 Crohn's disease of both small and large intestine with fistula (principal)
CPT/HCPCS: 36415; 84450; 84460; 85025

== ENCOUNTER 2021-08-07 21:56 | Inpatient (IN) | payer BC, OTHER ==
[2021-08-08] MEDS ORDERED: ONDANSETRON 4 MG/2 ML VIAL IVP STA (03:31)
[2021-08-08] MEDS ORDERED: SODIUM CHLORIDE 0.9% 1,000 ML IV ONE (03:31)
[2021-08-08] MEDS ORDERED: MORPHINE SULFATE 4 MG/ML SYRINGE IV STA (03:31)
[2021-08-08 03:39] LABS: Basophils # (A) 0.1 k/uL (0-0.2); Basophils % (A) 1 %; Eosinophils # (A) 0.1 k/uL (0-0.7); Eosinophils % (A) 0 %; HCT 48.7 % (39.0-53.0); HGB 16.8 gm/dL (13.0-17.5); Lymphocytes # (A) 1.1 k/uL (1.0-4.8); Lymphocytes % (A) 7 %; MCH 35.6 pg (25.0-35.0); MCHC 34.6 g/dL (31.0-37.0); Macrocytosis Slight; Mean Platelet Volume 6.7; Monocytes # (A) 0.8 k/uL (0-1.0); Monocytes % (A) 5 %; Neutrophils # (A) 13.1 k/uL (1.3-7.7); Neutrophils % (A) 86 %; Platelet Count 219 k/uL (150-450); RBC 4.73 m/uL (4.30-5.90); RDW 13.9 % (11.5-15.5); WBC 15.4 k/uL (3.8-10.6)
[2021-08-08 04:00] LABS: ALT 24 U/L (4-49); AST 31 U/L (17-59); African American GFR (CKD) 73 (>60 ml/min/1.73 sqM); Albumin 4.7 g/dL (3.5-5.0); Alkaline Phosphatase 87 U/L (38-126); Amylase 74 U/L (30-110); Anion Gap 8 mmol/L; Blood Urea Nitrogen 15 mg/dL (9-20); C Reactive Protein <0.5 mg/dL (<1.0); Calcium 9.7 mg/dL (8.4-10.2); Carbon Dioxide 29 mmol/L (22-30); Chloride 101 mmol/L (98-107); Glucose 109 mg/dL (74-99); Lipase 78 U/L (23-300); Non-African American GFR(CKD) 63 (>60 ml/min/1.73 sqM); Potassium 4.5 mmol/L (3.5-5.1); Sodium 138 mmol/L (137-145); Total Bilirubin 1.9 mg/dL (0.2-1.3); Total Protein 7.9 g/dL (6.3-8.2)
--- NOTE | 2021-08-08 04:21 | XR ---
EXAMINATION TYPE: XR KUB DATE OF EXAM: 08/08/2021 COMPARISON: 06/03/2019 HISTORY: Abdominal pain TECHNIQUE: FINDINGS: 2 views upright were obtained and show no sign of intestinal obstruction or pneumoperitoneu m. Fecal pattern is normal. Multiple surgical clips over the right mid abdomen. Lung bases are clear. There are no pathologic calcifications over the kidneys. IMPRESSION: Nonacute abdomen. No change.
[2021-08-08] MEDS ORDERED: HYDROmorphone 1 MG/ML 1 ML SYRINGE IVP STA (04:40)
[2021-08-08] MEDS ORDERED: FAMOTIDINE 20 MG/2 ML VIAL IV STA (04:42)
[2021-08-08] MEDS ORDERED: MORPHINE SULFATE 4 MG/ML SYRINGE IV PRN (07:53)
[2021-08-08] MEDS ORDERED: ACETAMINOPHEN TAB 325 MG TAB PO PRN (07:53)
[2021-08-08] MEDS ORDERED: NALOXONE 0.4 MG/ML 1 ML VIAL IV PRN (07:53)
--- NOTE | 2021-08-08 07:59 | ED ---
Abdominal Pain HPI - General Chief Complaint: Abdominal Pain Stated Complaint: Abd.Pain,Nausea Time Seen by Provider: 08/08/21 03:08 Source: patient Mode of arrival: ambulatory Limitations: no limitations - History of Present Illness Initial Comments: This patient is a 46-year-old man with history of Crohn's disease who states that he is having right-sided abdominal pain. Is been getting worse over the past 2 or so days. He states that he has similar symptoms with Crohn's flares. Patient currently taking approximately 20 mg of prednisone per day which is tapering down. Denies fever or chills. No change in bowel movements. He is having nausea. MD Complaint: abdominal pain -: days(s) Location: RUQ, RLQ Radiation: none Migration to: no migration Severity: severe Quality: cramping, aching Consistency: colicky Improves With: nothing Worsens With: nothing Associated Symptoms: nausea, vomiting - Related Data Home Medications Medication Instructions Recorded Confirmed Multivitamins, Thera [Multivitamin 1 tab PO DAILY 12/12/19 08/08/21 (formulary)] azaTHIOprine [Imuran] 250 mg PO DAILY 12/12/19 08/08/21 inFLIXimab [Remicade] 1 dose IVPB Q56D 12/12/19 08/08/21 L.acidoph,Paracasei, B.lactis 1 cap PO DAILY 11/20/20 08/08/21 [Probiotic] Previous Rx's Medication Instructions Recorded Levofloxacin [Levaquin] 500 mg PO DAILY 7 Days #7 tab 08/10/21 predniSONE [Deltasone] 50 mg PO DAILY 10 Days #10 tab 08/10/21 Allergies Allergy/AdvReac Type Severity Reaction Status Date / Time No Known Allergies Allergy Verified 08/08/21 09:58 Review of Systems ROS Statement: Those systems with pertinent positive or pertinent negative responses have been documented in the HPI. ROS Other: All systems not noted in ROS Statement are negative. Constitutional: Denies: fever, chills Respiratory: Denies: cough, dyspnea Cardiovascular: Denies: chest pain, palpitations, edema Gastrointestinal: Reports: abdominal pain, nausea, vomiting. Denies: diarrhea, constipation, melena, hematochezia Genitourinary: Denies: dysuria, hematuria, testicular pain, testicular mass Musculoskeletal: Denies: back pain Skin: Denies: rash Neurological: Denies: headache, weakness, numbness Past Medical History Additional Past Medical History / Comment(s): Crohn's disease with injections every 8 weeks, past bronchitis, "occ leg swelling" History of Any Multi-Drug Resistant Organisms: None Reported Past Surgical History: Appendectomy, Bowel Resection, Orthopedic Surgery Additional Past Surgical History / Comment(s): Colonoscopy, bowel resection x 2, rt ankle tendon/ligament repair and lt index finger surgery d/t crushing injury from hydrolic press. Past Anesthesia/Blood Transfusion Reactions: No Reported Reaction Past Psychological History: No Psychological Hx Reported Smoking Status: Never smoker Past Alcohol Use History: Occasional Past Drug Use History: None Reported - Past Family History Mother Family Medical History: Cancer Additional Family Medical History / Comment(s): Lung CA Father Family Medical History: Chest Pain / Angina, Deep Vein Thrombosis (DVT) Additional Family Medical History / Comment(s): heart disease,poor circulation General Exam Limitations: no limitations General appearance: alert, in no apparent distress Head exam: Present: atraumatic, normocephalic Eye exam: Present: normal appearance. Absent: scleral icterus, conjunctival injection Neck exam: Present: normal inspection Respiratory exam: Present: normal lung sounds bilaterally. Absent: respiratory distress, wheezes, rales, rhonchi, stridor Cardiovascular Exam: Present: regular rate, normal rhythm, normal heart sounds. Absent: systolic murmur, diastolic murmur, rubs, gallop GI/Abdominal exam: Present: soft, tenderness, diminished bowel sounds. Absent: distended, guarding, rebound, rigid, mass, pulsatile mass, hernia Extremities exam: Present: normal inspection, normal capillary refill. Absent: pedal edema, calf tenderness Back exam: Present: normal inspection. Absent: CVA tenderness (R), CVA tenderness (L) Neurological exam: Present: alert Skin exam: Present: warm, dry, intact, normal color. Absent: rash Course Vital Signs 08/07/21 08/08/21 08/08/21 22:33 03:40 05:00 Temperature 98.2 F Pulse Rate 89 72 77 Respiratory 18 16 16 Rate Blood Pressure 149/100 167/104 150/102 O2 Sat by Pulse 98 98 98 Oximetry 08/08/21 08/08/21 08/08/21 12:00 18:00 21:00 Temperature 98.7 F Pulse Rate 81 82 78 Respiratory 18 18 16 Rate Blood Pressure 133/88 135/84 137/84 O2 Sat by Pulse 96 98 98 Oximetry Medical Decision Making - Lab Data Result diagrams: 08/09/21 04:55 08/09/21 04:55 Lab Results 08/08/21 08/08/21 Range/Units 03:21 03:21 WBC 15.4 H (3.8-10.6) k/uL RBC 4.73 (4.30-5.90) m/uL Hgb 16.8 (13.0-17.5) gm/dL Hct 48.7 (39.0-53.0) % MCV 103.0 H (80.0-100.0) fL MCH 35.6 H (25.0-35.0) pg MCHC 34.6 (31.0-37.0) g/dL RDW 13.9 (11.5-15.5) % Plt Count 219 (150-450) k/uL MPV 6.7 Neutrophils % 86 % Lymphocytes % 7 % Monocytes % 5 % Eosinophils % 0 % Basophils % 1 % Neutrophils # 13.1 H (1.3-7.7) k/uL Lymphocytes # 1.1 (1.0-4.8) k/uL Monocytes # 0.8 (0-1.0) k/uL Eosinophils # 0.1 (0-0.7) k/uL Basophils # 0.1 (0-0.2) k/uL Macrocytosis Slight Sodium 138 (137-145) mmol/L Potassium 4.5 (3.5-5.1) mmol/L Chloride 101 (98-107) mmol/L Carbon Dioxide 29 (22-30) mmol/L Anion Gap 8 mmol/L BUN 15 (9-20) mg/dL Creatinine 1.36 H (0.66-1.25) mg/dL Est GFR (CKD-EPI)AfAm 73 (>60 ml/min/1.73 sqM) Est GFR (CKD-EPI)NonAf 63 (>60 ml/min/1.73 sqM) Glucose 109 H (74-99) mg/dL Calcium 9.7 (8.4-10.2) mg/dL Total Bilirubin 1.9 H (0.2-1.3) mg/dL AST 31 (17-59) U/L ALT 24 (4-49) U/L Alkaline Phosphatase 87 (38-126) U/L C-Reactive Protein <0.5 (<1.0) mg/dL Total Protein 7.9 (6.3-8.2) g/dL Albumin 4.7 (3.5-5.0) g/dL Amylase 74 (30-110) U/L Lipase 78 (23-300) U/L Disposition Clinical Impression: Intractable abdominal pain, Crohn's ileitis Disposition: ADMITTED IP TO THIS HOSP Condition: Good Is patient prescribed a controlled substance at d/c from ED?: No
[2021-08-08] MEDS ORDERED: AMOXIC-POT CLAV 875-125MG 1 EACH TAB PO SCH (08:00)
--- NOTE | 2021-08-08 08:14 | P.HPIM ---
History of Present Illness H&P Date: 08/08/21 Chief Complaint: Right lower quadrant abdominal pain. This is a continue progress note/history and physical on a 46-year-old white male with known history of chronic Crohn's colitis. He has similar flareup about 9 months ago. Right lower quadrant pain with abdominal discomfort which is not controlled by home treatment. He states certain fruits do exacerbate issues and he states a lot of pineapples eaten recently. The patient has now had flare and with his uncontrollable pain, he is admitted for Crohn's colitis. Review of Systems Constitutional: Denies chills, Denies fever Ears, nose, mouth and throat: Denies headache, Denies sore throat Cardiovascular: Denies chest pain, Denies shortness of breath Respiratory: Denies cough Gastrointestinal: Reports as per HPI Musculoskeletal: Denies myalgias Integumentary: Denies pruritus, Denies rash Past Medical History Additional Past Medical History / Comment(s): Crohn's disease with injections every 8 weeks, past bronchitis, "occ leg swelling" History of Any Multi-Drug Resistant Organisms: None Reported Past Surgical History: Appendectomy, Bowel Resection, Orthopedic Surgery Additional Past Surgical History / Comment(s): Colonoscopy, bowel resection x 2, rt ankle tendon/ligament repair and lt index finger surgery d/t crushing injury from hydrolic press. Past Anesthesia/Blood Transfusion Reactions: No Reported Reaction Past Psychological History: No Psychological Hx Reported Smoking Status: Never smoker Past Alcohol Use History: Occasional Past Drug Use History: None Reported - Past Family History Mother Family Medical History: Cancer Additional Family Medical History / Comment(s): Lung CA Father Family Medical History: Chest Pain / Angina, Deep Vein Thrombosis (DVT) Additional Family Medical History / Comment(s): heart disease,poor circulation Medications and Allergies Home Medications Medication Instructions Recorded Confirmed Type Multivitamins, Thera [Multivitamin 1 tab PO DAILY 12/12/19 11/20/20 History (formulary)] Turmeric Root Extract [Turmeric] 500 mg PO DAILY 12/12/19 11/20/20 History azaTHIOprine [Imuran] 50 mg PO DAILY 12/12/19 11/20/20 History inFLIXimab [Remicade] 1 dose IVPB Q42D 12/12/19 11/20/20 History L.acidoph,Paracasei, B.lactis 1 cap PO DAILY 11/20/20 11/20/20 History [Probiotic] Magnesium Oxide 400 mg PO DAILY 11/20/20 11/20/20 History Tioga-3 Fatty Acids [Tioga-3] 1,000 mg PO DAILY 11/20/20 11/20/20 History predniSONE 20 mg PO AC-BRKFST 11/20/20 11/20/20 History Allergies Allergy/AdvReac Type Severity Reaction Status Date / Time No Known Allergies Allergy Verified 08/07/21 22:36 Physical Exam Vitals: Vital Signs Temp Pulse Resp BP Pulse Ox 08/08/21 05:00 77 16 150/102 98 08/08/21 03:40 72 16 167/104 98 08/07/21 22:33 98.2 F 89 18 149/100 98 Intake and Output 08/07/21 08/08/21 08/08/21 22:59 06:59 14:59 Other: Weight 106.594 kg - Constitutional General appearance: no acute distress - EENT Eyes: EOMI - Neck Neck: no lymphadenopathy - Cardiovascular Rhythm: regular Heart sounds: normal: S1, S2 Abnormal Heart Sounds: no S3 Gallop - Gastrointestinal General gastrointestinal: distended, soft, tenderness Localized gastrointestinal: tender: RLQ - Integumentary Integumentary: no cellulitis - Psychiatric Psychiatric: A&O x's 3, no appropriate affect Results CBC & Chem 7: 08/08/21 03:21 08/08/21 03:21 Labs: Abnormal Lab Results - Last 24 Hours (Table) 08/08/21 08/08/21 Range/Units 03:21 03:21 WBC 15.4 H (3.8-10.6) k/uL MCV 103.0 H (80.0-100.0) fL MCH 35.6 H (25.0-35.0) pg Neutrophils # 13.1 H (1.3-7.7) k/uL Creatinine 1.36 H (0.66-1.25) mg/dL Glucose 109 H (74-99) mg/dL Total Bilirubin 1.9 H (0.2-1.3) mg/dL Assessment and Plan (1) Crohn's ileitis Current Visit: No Status: Acute Code(s): K50.00 - CROHN'S DISEASE OF SMALL INTESTINE WITHOUT COMPLICATIONS SNOMED Code(s): 94403462 (2) Diarrhea Current Visit: No Status: Acute Code(s): R19.7 - DIARRHEA, UNSPECIFIED SNOMED Code(s): 86949375 (3) Intractable abdominal pain Current Visit: No Status: Acute Code(s): R10.9 - UNSPECIFIED ABDOMINAL PAIN SNOMED Code(s): 99899736 Plan: We'll go ahead and start prednisone 20 mg with empiric Zosyn for acute abdomen. check CBC and CMP in a.m. Pain control. Restart home medications. Unfortunately, we do not have GI service this week due to the limitations of the specialty at this time. If the patient worsens, consider surgical evaluation. See orders otherwise The patient is otherwise full code.
[2021-08-08] MEDS: SODIUM CHLORIDE 0.9% 1,000 ML IV SCH ×2 (08:46→23:50)
[2021-08-08] MEDS: HYDROmorphone 0.5 MG/0.5 ML SYRINGE IVP PRN ×5 (08:49→23:47)
[2021-08-08] MEDS: PIPERACILLIN-TAZOBACTAM 3.375 GM in SODIUM CHLORIDE 0.9% 100 ML IVPB SCH ×2 (08:55→19:37)
[2021-08-08] MEDS: PANTOPRAZOLE 40 MG/10 ML VIAL IV SCH (08:55)
[2021-08-08] MEDS ORDERED: predniSONE 20 MG TAB PO SCH (09:00)
[2021-08-08] MEDS: azaTHIOprine 50 MG TAB PO SCH (10:27)
[2021-08-08 12:00] LABS: Amorphous Sediment,Urine Rare /hpf; Appearance,Urine Cloudy (Clear); Bacteria,Urine Rare /hpf; Bilirubin,Urine Negative (Negative); Blood,Urine Negative (Negative); Color,Urine Yellow; Glucose,Urine (UA) Negative (Negative); Ketones,Urine Negative (Negative); Leukocyte Esterase,Urine Small (Negative); Mucus,Urine Many /hpf; Nitrite,Urine Negative (Negative); PH, Urine 6.5 (5.0-8.0); Protein,Urine 1+ (Negative); Specific Gravity,Urine 1.032 (1.001-1.035); Squamous Epithelial Cell,Urine 2 /hpf (0-4); WBC,Urine 10 /hpf (0-5)
[2021-08-09] MEDS: SODIUM CHLORIDE 0.9% 1,000 ML IV SCH ×4 (01:28→20:16)
[2021-08-09] MEDS: HYDROmorphone 0.5 MG/0.5 ML SYRINGE IVP PRN ×2 (02:43→05:48)
[2021-08-09] MEDS: PIPERACILLIN-TAZOBACTAM 3.375 GM in SODIUM CHLORIDE 0.9% 100 ML IVPB SCH ×4 (02:51→23:53)
[2021-08-09] MEDS: ONDANSETRON 4 MG/2 ML VIAL IVP PRN ×2 (02:55→15:59)
[2021-08-09] MEDS ORDERED: HYDROmorphone 1 MG/ML 1 ML SYRINGE IM PRN (08:13)
--- NOTE | 2021-08-09 08:21 | P.PN ---
Subjective Progress Note Date: 08/09/21 Principal diagnosis: The patient is here essentially for acute Crohn's flareup. Still a slight pain. No fever or chills. No significant nausea, vomiting or diarrhea. Objective - Vital Signs Vital signs: Vital Signs Temp 98.2 F 08/09/21 08:06 Pulse 68 08/09/21 08:06 Resp 18 08/09/21 08:06 BP 145/87 08/09/21 08:06 Pulse Ox 95 08/09/21 08:06 Intake & Output 08/08/21 08/09/21 08/09/21 18:59 06:59 18:59 Intake Total 0 Balance 0 Weight 106.594 kg Intake: Oral 0 Other: Voiding Method Toilet Toilet # Voids 2 - Constitutional General appearance: Present: average body habitus - EENT Eyes: Absent: abnormal pupil - Neck Neck: Absent: lymphadenopathy - Respiratory Respiratory: bilateral: CTA - Cardiovascular Rhythm: regular Heart sounds: normal: S1, S2 Abnormal Heart Sounds: Absent: S3 Gallop - Gastrointestinal General gastrointestinal: Present: soft, tenderness - Labs CBC & Chem 7: 08/08/21 03:21 08/08/21 03:21 Labs: Abnormal Lab Results - Last 24 Hours (Table) 08/08/21 Range/Units 11:24 Urine Protein 1+ H (Negative) Ur Leukocyte Esterase Small H (Negative) Urine WBC 10 H (0-5) /hpf Amorphous Sediment Rare H (None) /hpf Urine Bacteria Rare H (None) /hpf Urine Mucus Many H (None) /hpf Assessment and Plan (1) Crohn's ileitis Current Visit: No Status: Acute Code(s): K50.00 - CROHN'S DISEASE OF SMALL INTESTINE WITHOUT COMPLICATIONS SNOMED Code(s): 77251088 (2) Diarrhea Current Visit: No Status: Acute Code(s): R19.7 - DIARRHEA, UNSPECIFIED SNOMED Code(s): 19636277 (3) Intractable abdominal pain Current Visit: No Status: Acute Code(s): R10.9 - UNSPECIFIED ABDOMINAL PAIN SNOMED Code(s): 83203114 Plan: We'll go ahead and start prednisone 20 mg with empiric Zosyn for acute abdomen. check CBC and CMP in a.m. Pain control slight increase in Dilaudid. Restart home medications. Unfortunately, we do not have GI service this week due to the limitations of the specialty at this time. If the patient worsens, consider surgical evaluation. See orders otherwise The patient is otherwise full code. Switch over to IV Solu-Medrol. Sliding scale otherwise.
[2021-08-09] MEDS: HYDROmorphone 1 MG/ML 1 ML SYRINGE IVP PRN ×5 (09:14→23:54)
[2021-08-09 09:36] LABS: HCT 45.1 % (39.6-50.0); HGB 15.1 g/dL (13.0-17.0); MCH 34.7 pg (27.0-32.0); MCHC 33.5 g/dL (32.0-37.0); MCV 103.7 fL (80.0-97.0); NRBC Per 100 WBC 0 /100 WBCS (0.0-0.0); Platelet Count 181 X 10*3/uL (140-440); RBC 4.35 X 10*6/uL (4.40-5.60); WBC 13.47 X 10*3/uL (4.50-10.00)
[2021-08-09 09:42] LABS: African American GFR (CKD) 76.9 (60.0-200.0); Albumin 4.3 g/dL (3.8-4.9); Albumin/Globulin Ratio 1.87 (1.60-3.17); Anion Gap 13.1 mmol/L (10.00-18.00); BUN/Creat Ratio 11.54 Ratio (12.00-20.00); Calcium 9.1 mg/dL (8.7-10.3); Carbon Dioxide 21.9 mmol/L (20.0-27.5); Globulin 2.3 g/dL (1.6-3.3); Non-African American GFR(CKD) 66.4 (60.0-200.0); Potassium 5.3 mmol/L (3.5-5.5); Total Bilirubin 1.4 mg/dL (0.30-1.20); Total Protein 6.6 g/dL (6.2-8.2)
[2021-08-09] MEDS: PANTOPRAZOLE 40 MG/10 ML VIAL IV SCH (10:16)
[2021-08-09] MEDS: methylPREDNISolone SOD SUCCI 125 MG/2 ML VIAL IV SCH ×3 (10:17→23:54)
[2021-08-09] MEDS: azaTHIOprine 50 MG TAB PO SCH (10:18)
[2021-08-09 17:12] LABS: Glucose,Whole Blood 120 mg/dL (75-99)
[2021-08-09] MEDS: INSULIN ASPART (NovoLOG) 100 UNIT/ML VIAL SQ SCH ×2 (17:34→20:08)
[2021-08-09 20:08] LABS: Glucose,Whole Blood 135 mg/dL (75-99)
[2021-08-10] MEDS: HYDROmorphone 1 MG/ML 1 ML SYRINGE IVP PRN ×4 (03:10→15:39)
[2021-08-10] MEDS: SODIUM CHLORIDE 0.9% 1,000 ML IV SCH ×3 (06:06→14:33)
[2021-08-10] MEDS: INSULIN ASPART (NovoLOG) 100 UNIT/ML VIAL SQ SCH ×3 (07:24→17:53)
[2021-08-10 07:28] LABS: Glucose,Whole Blood 124 mg/dL (75-99)
[2021-08-10] MEDS: PANTOPRAZOLE 40 MG/10 ML VIAL IV SCH (07:30)
[2021-08-10] MEDS: methylPREDNISolone SOD SUCCI 125 MG/2 ML VIAL IV SCH ×2 (07:30→15:34)
[2021-08-10] MEDS: PIPERACILLIN-TAZOBACTAM 3.375 GM in SODIUM CHLORIDE 0.9% 100 ML IVPB SCH ×2 (07:30→15:38)
[2021-08-10] MEDS: azaTHIOprine 50 MG TAB PO SCH (07:36)
[2021-08-10 08:39] VITALS: RESP 18
--- NOTE | 2021-08-10 08:41 | P.DS ---
Providers Date of admission: 08/08/21 07:55 Attending physician: Carrington Naik Primary care physician: Carrington Naik - Discharge Diagnosis(es) (1) Crohn's ileitis Current Visit: No Status: Acute (2) Diarrhea Current Visit: No Status: Acute (3) Intractable abdominal pain Current Visit: No Status: Acute Hospital Course: This is a discharge summary on a 46-year-old white male essentially admitted for acute Crohn's colitis. The patient was placed on appropriate IV steroids and empiric antibody treatment. He stabilized. He'll be discharged once he is tolerating diet pain is minimal and is resting comfortably. We'll keep him off of work for at least another 4-5 days per Follow-up with me in about 3 days. Plan - Discharge Summary New Discharge Prescriptions: New predniSONE [Deltasone] 50 mg PO DAILY 10 Days #10 tab Levofloxacin [Levaquin] 500 mg PO DAILY 7 Days #7 tab Continue Multivitamins, Thera [Multivitamin (formulary)] 1 tab PO DAILY inFLIXimab [Remicade] 1 dose IVPB Q56D azaTHIOprine [Imuran] 250 mg PO DAILY L.acidoph,Paracasei, B.lactis [Probiotic] 1 cap PO DAILY Discontinued predniSONE 20 mg PO W/BRKFST Discharge Medication List Multivitamins, Thera [Multivitamin (formulary)] 1 tab PO DAILY 12/12/19 [History] azaTHIOprine [Imuran] 250 mg PO DAILY 12/12/19 [History] inFLIXimab [Remicade] 1 dose IVPB Q56D 12/12/19 [History] L.acidoph,Paracasei, B.lactis [Probiotic] 1 cap PO DAILY 11/20/20 [History] Levofloxacin [Levaquin] 500 mg PO DAILY 7 Days #7 tab 08/10/21 [Rx] predniSONE [Deltasone] 50 mg PO DAILY 10 Days #10 tab 08/10/21 [Rx] Follow up Appointment(s)/Referral(s): Carrington Naik MD [Primary Care Provider] - 3 Days
[2021-08-10 11:26] LABS: Glucose,Whole Blood 115 mg/dL (75-99)
[2021-08-10 12:54] VITALS: BP 138/79; PULSE 67; TEMP 98.4
[2021-08-10 17:20] LABS: Glucose,Whole Blood 131 mg/dL (75-99)
== END 2021-08-10 21:01 | disposition home or self-care (01) | DRG 387 ==
LOC: EC 21:56 → 5NMEDONC 08-08 07:55
PROVIDERS: ADMIT Family Medicine; ATTEND Family Medicine
DX: K50.80 Crohn's disease of both small and large intestine without complications (principal); Z79.899 Other long term (current) drug therapy; Z80.1 Family history of malignant neoplasm of trachea, bronchus and lung; Z90.49 Acquired absence of other specified parts of digestive tract; Z98.890 Other specified postprocedural states; Z87.891 Personal history of nicotine dependence; Z83.2 Family history of diseases of the blood and blood-forming organs and certain disorders involving the immune mechanism; Z82.49 Family history of ischemic heart disease and other diseases of the circulatory system; Z79.52 Long term (current) use of systemic steroids
CPT/HCPCS: 36415; 74018; 80053; 81001; 82150; 83690; 85025; 85027; 86140; 96361; 96365; 96366; 96375; 96376; 99285

== ENCOUNTER → 2022-01-18 | Outpatient (CLI) | payer BC, OTHER ==
[2022-01-18 18:02] LABS: Basophils # (A) 0.04 X 10*3/uL (0.00-0.10); Basophils % (A) 0.4 %; Eosinophils # (A) 0.03 X 10*3/uL (0.04-0.35); Eosinophils % (A) 0.3 %; HCT 43.9 % (39.6-50.0); Immature Grans, Automated 0.5 %; Lymphocytes # (A) 1.16 X 10*3/uL (0.90-5.00); Lymphocytes % (A) 12.7 %; MCHC 34.2 g/dL (32.0-37.0); MCV 102.6 fL (80.0-97.0); Mean Platelet Volume 10.1 fL (9.5-12.2); Monocytes # (A) 0.71 X 10*3/uL (0.20-1.00); Monocytes % (A) 7.8 %; NRBC Per 100 WBC 0 /100 WBCS (0.0-0.0); Neutrophils # (A) 7.17 X 10*3/uL (1.80-7.70); Neutrophils % (A) 78.3 %; Platelet Count 219 X 10*3/uL (140-440); RBC 4.28 X 10*6/uL (4.40-5.60); WBC 9.16 X 10*3/uL (4.50-10.00)
[2022-01-18 18:09] LABS: ALT 39 U/L (10-49); AST 34 U/L (14-35)
== END | disposition home or self-care (01) ==
LOC: LABWHC1 12:17
PROVIDERS: ATTEND Internal Medicine
DX: K50.813 Crohn's disease of both small and large intestine with fistula (principal)
CPT/HCPCS: 36415; 84450; 84460; 85025